=== PATIENT | male | born 1940 | race Caucasian/White ===

== ENCOUNTER 2016-10-27 09:37 | Emergency (ER) | payer MEDICARE, MEDICAID ==
[~2016-10-27] VITALS: Ht 177.8 cm; Wt 90.7 kg
[2016-10-27 11:00] LABS: BILIRUBIN,URINE NEGATIVE (NEGATIVE); KETONES,URINE NEGATIVE (NEGATIVE); LEUKOCYTE ESTERASE ,URINE NEGATIVE (NEGATIVE); NITRITE,URINE NEGATIVE (NEGATIVE); PH,URINE 6 (5-9); PROTEIN,URINE NEGATIVE (NEGATIVE); UROBILINOGEN,URINE NORMAL (NORMAL)
--- NOTE | 2016-10-27 11:02 | Diagnostic Imaging Report ---
INDICATION: Chest pain COMPARISON: None FINDINGS: Frontal and lateral views of the chest demonstrate mild cardiac enlargement without pulmonary edema. There is no pneumothorax, effusion or infiltrate. Chronic appearing elevation of the right hemidiaphragm is present. Pacemaker appears stable. IMPRESSION: No acute cardiopulmonary findings. Dictated by: Dictated on workstation # [id number]
[2016-10-27 11:22] LABS: BASOPHILS % (AUTO) 1 % (0-10); EOSINOPHILS % (AUTO) 1 % (0-10); LYMPHOCYTES # (AUTO) 0.9 X 10^3 (1.0-4.0); LYMPHOCYTES % (AUTO) 24 % (12-44); MEAN CORPUSCULAR HEMOGLOBIN 29 PG (25-34); MEAN CORPUSCULAR HGB CONC 34 G/DL (32-36); MEAN CORPUSCULAR VOLUME 87 FL (80-99); MEAN PLATELET VOLUME 11.9 FL (7.4-10.4); MONOCYTES # (AUTO) 0.9 X 10^3 (0.0-1.0); MONOCYTES % (AUTO) 25 % (0-12); NEUTROPHILS # (AUTO) 1.9 X 10^3 (1.8-7.8); NEUTROPHILS % (AUTO) 51 % (42-75); PLATELET COUNT 198 10^3/uL (130-400); RED BLOOD COUNT 4.73 10^6/uL (4.35-5.85); RED CELL DISTRIBUTION WIDTH 13.5 % (10.0-14.5); WHITE BLOOD COUNT 3.8 10^3/uL (4.3-11.0)
[2016-10-27 11:39] LABS: BAND NEUTROPHILS 3 %; BASOPHILS % (MANUAL) 2 %; LYMPHOCYTES % (MANUAL) 27 %; NEUTROPHILS % (MANUAL) 46 %
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
[2016-10-27 11:46] LABS: ANION GAP 13 MMOL/L (5-14); BLOOD UREA NITROGEN 15 MG/DL (7-18); BUN/CREATININE RATIO 11; CARBON DIOXIDE 24 MMOL/L (21-32); CHLORIDE 97 MMOL/L (98-107); CREATININE SERUM 1.35 MG/DL (0.60-1.30); GFR ESTIMATED 52; POTASSIUM 4.7 MMOL/L (3.6-5.0); SODIUM 134 MMOL/L (135-145)
[2016-10-27 11:47] LABS: ALANINE AMINOTRANSFERASE 22 U/L (0-55); ALBUMIN 4.3 GM/DL (3.2-4.5); ALCOHOL < 10 MG/DL (<10); ASPARTATE AMINO TRANSFERASE 20 U/L (5-34); BILIRUBIN,TOTAL 0.6 MG/DL (0.1-1.0); CALCIUM 10.2 MG/DL (8.5-10.1); MAGNESIUM 1.9 MG/DL (1.8-2.4); TOTAL PROTEIN 7.5 GM/DL (6.4-8.2)
[2016-10-27 11:49] LABS: GLUCOSE 447 MG/DL (70-105)
[2016-10-27 11:51] LABS: ACETAMINOPHEN < 10 UG/ML (10-30); SALICYLATE < 5.0 MG/DL (5.0-20.0)
[2016-10-27] MEDS ORDERED: inSUlin (REGULAR) HUMAN 1 UNIT/0.01 ML (CHARGE PER UNIT) SC STA (12:15)
[2016-10-27 19:21] VITALS: BP 130/99
== END 2016-10-27 19:34 | disposition short-term general hospital (02) ==
LOC: ER 09:42
DX: F91.8 Other conduct disorders (principal); F03.90 Unspecified dementia, unspecified severity, without behavioral disturbance, psychotic disturbance, mood disturbance, and anxiety; I25.10 Atherosclerotic heart disease of native coronary artery without angina pectoris; E78.00 Pure hypercholesterolemia, unspecified; I10 Essential (primary) hypertension; K21.9 Gastro-esophageal reflux disease without esophagitis; E11.9 Type 2 diabetes mellitus without complications; F41.9 Anxiety disorder, unspecified; Z87.891 Personal history of nicotine dependence
CPT/HCPCS: 36415; 71020; 80053; 80306; 80320; 80329; 81000; 82962; 83735; 84443; 85007; 85027; 93005; 96372

== ENCOUNTER 2017-04-28 16:50 | Emergency (ER) | payer MEDICAID, MEDICARE ==
[~2017-04-28] VITALS: Ht 177.8 cm; Wt 86.2 kg
[2017-04-28 18:14] LABS: BASOPHILS % (AUTO) 0 % (0-10); EOSINOPHILS % (AUTO) 0 % (0-10); HEMATOCRIT 38 % (40-54); HEMOGLOBIN 13.1 G/DL (13.3-17.7); LYMPHOCYTES # (AUTO) 1.2 X 10^3 (1.0-4.0); LYMPHOCYTES % (AUTO) 16 % (12-44); MEAN CORPUSCULAR HEMOGLOBIN 29 PG (25-34); MEAN CORPUSCULAR HGB CONC 34 G/DL (32-36); MEAN CORPUSCULAR VOLUME 85 FL (80-99); MEAN PLATELET VOLUME 11.4 FL (7.4-10.4); MONOCYTES # (AUTO) 2.4 X 10^3 (0.0-1.0); MONOCYTES % (AUTO) 33 % (0-12); NEUTROPHILS # (AUTO) 3.7 X 10^3 (1.8-7.8); NEUTROPHILS % (AUTO) 50 % (42-75); PLATELET COUNT 162 10^3/uL (130-400); RED BLOOD COUNT 4.52 10^6/uL (4.35-5.85); RED CELL DISTRIBUTION WIDTH 13.9 % (10.0-14.5); WHITE BLOOD COUNT 7.3 10^3/uL (4.3-11.0)
[2017-04-28 18:30] LABS: INR 1.1 (0.8-1.4); PROTHROMBIN TIME PATIENT 14.1 SEC (12.2-14.7)
[2017-04-28 18:32] LABS: ALANINE AMINOTRANSFERASE 10 U/L (0-55); ALBUMIN 4.1 GM/DL (3.2-4.5); ALKALINE PHOSPHATASE 66 U/L (40-136); BILIRUBIN,TOTAL 0.6 MG/DL (0.1-1.0); BUN/CREATININE RATIO 18; CALCIUM 10.1 MG/DL (8.5-10.1); CARBON DIOXIDE 25 MMOL/L (21-32); CHLORIDE 99 MMOL/L (98-107); CREATININE SERUM 1.09 MG/DL (0.60-1.30); GFR ESTIMATED > 60; GLUCOSE 210 MG/DL (70-105); MAGNESIUM 1.8 MG/DL (1.8-2.4); SODIUM 136 MMOL/L (135-145); TOTAL PROTEIN 6.9 GM/DL (6.4-8.2)
[2017-04-28 18:38] LABS: BAND NEUTROPHILS 6 %; BASOPHILS % (MANUAL) 0 %; EOSINOPHILS % (MANUAL) 1 %; LYMPHOCYTES % (MANUAL) 20 %; MONOCYTES % (MANUAL) 25 %; NEUTROPHILS % (MANUAL) 48 %
[2017-04-28 18:39] LABS: RBC MORPH NORMAL
[2017-04-28 18:51] LABS: BILIRUBIN,URINE NEGATIVE (NEGATIVE); CLARITY,URINE CLEAR; COLOR,URINE YELLOW; GLUCOSE, URINE (UA) NEGATIVE (NEGATIVE); KETONES,URINE 1+ (NEGATIVE); LEUKOCYTE ESTERASE ,URINE NEGATIVE (NEGATIVE); NITRITE,URINE NEGATIVE (NEGATIVE); PH,URINE 5 (5-9); PROTEIN,URINE NEGATIVE (NEGATIVE); UROBILINOGEN,URINE 1 MG/DL (NORMAL)
[2017-04-28 19:00] LABS: SQUAMOUS EPITHELIAL CELL,UR RARE /HPF
--- NOTE | 2017-04-28 19:10 | Diagnostic Imaging Report ---
PROCEDURE: CT head and CT cervical spine without contrast. TECHNIQUE: Multiple contiguous axial images were obtained through the brain and cervical spine without the use of intravenous contrast. Sagittal and coronal reformations through the cervical spine were then performed. INDICATION: Neck pain CT head: The ventricles are normal in size, shape and position. There are no masses or hemorrhages. There are no extra-axial fluid collections. IMPRESSION: Negative CT head CT cervical spine. There are degenerative changes of the atlantoaxial joint. There is mild diffuse degenerative disc change. Alignment is normal. There are no fractures. There is some facet arthropathy present in the cervical spine. IMPRESSION: Diffuse degenerative changes in the cervical spine. No acute abnormality seen. Dictated by: Dictated on workstation # [id number]
--- NOTE | 2017-04-28 19:12 | Diagnostic Imaging Report ---
INDICATION: Back pain CT thoracic and lumbar spine Thin axial sections through the thoracic and lumbar spine were obtained. Sagittal and coronal images were also reformatted and reviewed. Alignment is normal. There are no compression fractures seen. There are degenerative disc changes at L3-4, L4-5, and L5-S1 with vacuum disc phenomena. There is diffuse spondylosis with osteophyte formation at the thoracic and lumbar spine. IMPRESSION: Diffuse degenerative changes of the thoracic and lumbar spine. There is no compression fracture or other acute abnormality seen. Dictated by: Dictated on workstation # [id number]
--- NOTE | 2017-04-28 19:28 | Diagnostic Imaging Report ---
INDICATION: Back pain Pelvis AP view pelvis shows no fracture or dislocation. There are some degenerative changes in both hips with osteophytes forming at the right superior acetabular rim. IMPRESSION: No acute abnormality seen in the pelvis Dictated by: Dictated on workstation # [id number]
--- NOTE | 2017-04-28 19:29 | Diagnostic Imaging Report ---
INDICATION: Back pain There are postop changes from a median sternotomy. There is a dual-chamber pacemaker. Heart size and pulmonary vascularity are normal. Lungs are clear. There are no effusions or pneumothoraces. IMPRESSION: No acute abnormalities in the chest Dictated by: Dictated on workstation # [id number]
--- NOTE | 2017-04-28 19:36 | ED General ---
General Chief Complaint: Back Problems Stated Complaint: BACK PAIN Nursing Triage Note: Pt unable to give this RN a history Nursing Sepsis Screen: No Definite Risk Allergies and Home Medications Allergies Coded Allergies: No Known Drug Allergies (Unverified , 10/27/16) Past Yaipubt-Bfxaby-Hqvtqm Hx Patient Social History Alcohol Use: Past History Number of Drinks Today: AA Alcohol Beverage of Choice: Beer Recreational Drug Use: No Smoking Status: Former Smoker Type Used: Cigarettes 2nd Hand Smoke Exposure: No Recent Foreign Travel: No Contact w/Someone Who Travel: No Recent Infectious Disease Expo: No Recent Hopitalizations: Yes (pacemaker) Physical Abuse: No Sexual Abuse: No Mistreated: No Fear: No Immunizations Up To Date Tetanus Booster (TDap): Unknown Seasonal Allergies Seasonal Allergies: No Surgeries History of Surgeries: Yes Surgeries: Cardiac Respiratory History of Respiratory Disorde: No Cardiovascular History of Cardiac Disorders: Yes Cardiac Disorders: Coronary Artery Disease, High Cholesterol, Hypertension Neurological History of Neurological Disord: Yes Neurological Disorders: Dementia Genitourinary History of Genitourinary Disor: No Gastrointestinal History of Gastrointestinal Di: Yes Gastrointestinal Disorders: Gastroesophageal Reflux Musculoskeletal History of Musculoskeletal Dis: No Endocrine History of Endocrine Disorders: Yes Endocrine Disorders: Diabetes, Insulin dep HEENT History of HEENT Disorders: No Cancer History of Cancer: No Psychosocial History of Psychiatric Problem: Yes (etoh abuse) Behavioral Health Disorders: Anxiety Suicide Risk Score: 0 Integumentary History of Skin or Integumenta: No Family Medical History Significant Family History: No Pertinent Family Hx Physical Exam Vital Signs Vital Sign - Last 12Hours 04/28/17 16:54 Temp 97.0 Pulse 83 Resp 18 B/P (MAP) 118/74 (89) Pulse Ox 95 O2 Delivery Room Air Capillary Refill : Less Than 3 Seconds Progress/Results/Core Measures Suspected Sepsis Recent Fever Within 48 Hours: No Infection Criteria Present: None New/Unexplained Altered Menta: Yes Sepsis Screen: No Definite Risk Sepsis Diagnosis: SIRS Temperature:97.0 Pulse: 83 Respiratory Rate: 18 Laboratory Tests 04/28/17 18:05: White Blood Count 7.3 Blood Pressure 118 /74 Mean: 89 Laboratory Tests 04/28/17 18:05: Creatinine 1.09, INR Comment 1.1, Platelet Count 162, Total Bilirubin 0.6 Results/Orders Lab Results Laboratory Tests Test 04/28/17 17:59 04/28/17 18:05 04/28/17 18:40 Range/Units Glucometer 197 H 70-110 MG/DL White Blood Count 7.3 4.3-11.0 10^3/uL Red Blood Count 4.52 4.35-5.85 10^6/uL Hemoglobin 13.1 L 13.3-17.7 G/DL Hematocrit 38 L 40-54 % Mean Corpuscular Volume 85 80-99 FL Mean Corpuscular Hemoglobin 29 25-34 PG Mean Corpuscular Hemoglobin Concent 34 32-36 G/DL Red Cell Distribution Width 13.9 10.0-14.5 % Platelet Count 162 130-400 10^3/uL Mean Platelet Volume 11.4 H 7.4-10.4 FL Neutrophils (%) (Auto) 50 42-75 % Lymphocytes (%) (Auto) 16 12-44 % Monocytes (%) (Auto) 33 H 0-12 % Eosinophils (%) (Auto) 0 0-10 % Basophils (%) (Auto) 0 0-10 % Neutrophils # (Auto) 3.7 1.8-7.8 X 10^3 Lymphocytes # (Auto) 1.2 1.0-4.0 X 10^3 Monocytes # (Auto) 2.4 H 0.0-1.0 X 10^3 Eosinophils # (Auto) 0.0 0.0-0.3 10^3/uL Basophils # (Auto) 0.0 0.0-0.1 10^3/uL Neutrophils % (Manual) 48 % Lymphocytes % (Manual) 20 % Monocytes % (Manual) 25 % Eosinophils % (Manual) 1 % Basophils % (Manual) 0 % Band Neutrophils 6 % Blood Morphology Comment NORMAL Prothrombin Time 14.1 12.2-14.7 SEC INR Comment 1.1 0.8-1.4 Activated Partial Thromboplast Time 41 H 24-35 SEC Sodium Level 136 135-145 MMOL/L Potassium Level 5.0 3.6-5.0 MMOL/L Chloride Level 99 98-107 MMOL/L Carbon Dioxide Level 25 21-32 MMOL/L Anion Gap 12 5-14 MMOL/L Blood Urea Nitrogen 20 H 7-18 MG/DL Creatinine 1.09 0.60-1.30 MG/DL Estimat Glomerular Filtration Rate > 60 BUN/Creatinine Ratio 18 Glucose Level 210 H 70-105 MG/DL Calcium Level 10.1 8.5-10.1 MG/DL Magnesium Level 1.8 1.8-2.4 MG/DL Total Bilirubin 0.6 0.1-1.0 MG/DL Aspartate Amino Transf (AST/SGOT) 14 5-34 U/L Alanine Aminotransferase (ALT/SGPT) 10 0-55 U/L Alkaline Phosphatase 66 40-136 U/L Troponin I < 0.30 <0.30 NG/ML Total Protein 6.9 6.4-8.2 GM/DL Albumin 4.1 3.2-4.5 GM/DL TSH Evangeline Testing 2.10 0.35-4.94 UIU/ML Urine Color YELLOW Urine Clarity CLEAR Urine pH 5 5-9 Urine Specific [place] 1.020 1.016-1.022 Urine Protein NEGATIVE NEGATIVE Urine Glucose (UA) NEGATIVE NEGATIVE Urine Ketones 1+ H NEGATIVE Urine Nitrite NEGATIVE NEGATIVE Urine Bilirubin NEGATIVE NEGATIVE Urine Urobilinogen 1 NORMAL MG/DL Urine Leukocyte Esterase NEGATIVE NEGATIVE Urine RBC (Auto) NEGATIVE NEGATIVE Urine RBC NONE /HPF Urine WBC NONE /HPF Urine Squamous Epithelial Cells RARE /HPF Urine Crystals NONE /LPF Urine Bacteria NONE /HPF Urine Casts NONE /LPF Urine Mucus NEGATIVE /LPF Urine Culture Indicated NO My Orders Orders - CHRIS WYATT DO Accucheck Stat ONCE (04/28/17 17:56) Saline Lock/Iv-Start (04/28/17 17:56) Ekg Tracing (04/28/17 17:56) Monitor-Rhythm Ecg Trace Only (04/28/17 17:56) Ct Head/Cervical Spine Wo (04/28/17 17:56) Ct Thoracic/Lumbar Spine Wo (04/28/17 17:56) Cbc With Automated Diff (04/28/17 17:56) Comprehensive Metabolic Panel (04/28/17 17:56) Magnesium (04/28/17 17:56) Protime With Inr (04/28/17 17:56) Partial Thromboplastin Time (04/28/17 17:56) Thyroid Analyzer (04/28/17 17:56) Troponin I (04/28/17 17:56) Ua Culture If Indicated (04/28/17 17:56) Chest 1 View, Ap/Pa Only (04/28/17 17:56) Pelvis (04/28/17 17:56) Saline Lock/Iv-Start (04/28/17 17:56) Influenza A And B Antigens (04/28/17 18:16) Manual Differential (04/28/17 18:05) Vital Signs/I&O Vital Sign - Last 12Hours 04/28/17 16:54 Temp 97.0 Pulse 83 Resp 18 B/P (MAP) 118/74 (89) Pulse Ox 95 O2 Delivery Room Air Capillary Refill : Less Than 3 Seconds Blood Pressure Mean: 89 Departure Impression Impression: Primary Impression: DEMENTIA Disposition: 03 XFER SNF Condition: Stable Departure-Patient Inst. Referrals: GISELL RATLIFF DO (PCP/Family) Primary Care Physician Patient Instructions: Dementia (DC) Add. Discharge Instructions: CONTINUE YOUR CURRENT MEDICATIONS FOLLOW UP WITH DR. RATLIFF FOR FURTHER CARE All discharge instructions reviewed with patient and/or family. Voiced understanding. CHRIS WYATT DO Apr 28, 2017 19:36
[2017-04-28 20:15] VITALS: BP 120/68
== END 2017-04-28 20:15 ==
LOC: EDUNIT# 16:50 → ER 16:51
DX: F03.90 Unspecified dementia, unspecified severity, without behavioral disturbance, psychotic disturbance, mood disturbance, and anxiety (principal); I25.10 Atherosclerotic heart disease of native coronary artery without angina pectoris; E78.00 Pure hypercholesterolemia, unspecified; I10 Essential (primary) hypertension; E11.9 Type 2 diabetes mellitus without complications; F41.9 Anxiety disorder, unspecified; K21.9 Gastro-esophageal reflux disease without esophagitis; Z87.891 Personal history of nicotine dependence; Z95.0 Presence of cardiac pacemaker
CPT/HCPCS: 36415; 70450; 71045; 72125; 72128; 72131; 72170; 80053; 81000; 82962; 83735; 84443; 84484; 85007; 85027; 85610; 85730; 87804; 93005

== ENCOUNTER → 2017-05-22 | Outpatient (CLI) | payer MEDICARE ==
[~2017-05-22] MED LIST: ACET325T38 PO; ASPI-983 PO; CARV3.122 PO; CEFD300C3 PO; CHOL10007 PO; CLOP75TA28 PO; CODE118S2 PO; DOCU-143 PO; DONE10TA41 PO; GLUC1KIT IJ; HYDR-700 PO; INSN1U SC; INSN1U SQ; INSU100I14 SQ; LISI-556 PO; MAGN400O7 PO; MEMA10TA22 PO; METF1000 PO; OSEL75CA15 PO; PANT40TA3 PO; RISP1TAB3 PO; SIMV40TA4 PO; TRAM50TA2 PO; TRAZ-28 PO
--- NOTE | 2017-05-22 15:34 | Diagnostic Imaging Report ---
PROCEDURE: CT head without contrast. TECHNIQUE: Multiple contiguous axial images were obtained through the brain without the use of intravenous contrast. INDICATION: Fall with head injury. COMPARISON: Head CT from 04/28/2017. FINDINGS: The ventricles and sulci are appropriate for the patient's age. Moderate periventricular hypodensity is noted, consistent with senescent change. No sulcal effacement is identified. There is no midline shift. No acute intra-axial or extra-axial hemorrhage is detected. The cisterns are patent. The visualized paranasal sinuses are clear. IMPRESSION: No acute intracranial process is detected. Dictated by: Dictated on workstation # [id number]
== END ==
LOC: RAD 15:13
PROVIDERS: ATTEND Family Medicine
DX: S09.90XA Unspecified injury of head, initial encounter (principal); R41.0 Disorientation, unspecified; W19.XXXA Unspecified fall, initial encounter
CPT/HCPCS: 70450

== ENCOUNTER → 2017-08-19 | Outpatient (CLI) | payer MEDICARE ==
[~2017-08-19] VITALS: Ht 175.3 cm; Wt 89.8 kg
[~2017-08-19] MED LIST changes: +CATHETER FLUSH 10 ML SYR IV PRN; -METF1000 PO; +METF10002 PO; +ONDA8TAB13 PO; +REGADENOSON 0.4 MG/5 ML SYR (LEXISCAN) IV ONE
[2017-08-19 09:21] VITALS: BP 143/89
--- NOTE | 2017-08-19 14:29 | STRESS TEST ---
DATE OF SERVICE: 08/19/2017 LEXISCAN MYOVIEW STRESS TEST REPORT REFERRING PHYSICIAN: Dr. Guevara. Baseline heart rate is 98. Baseline blood pressure 149/88. Baseline EKG is atrial fibrillation with occasional PVCs. In summary, the patient was injected with 10.61 mCi of technetium-99 Myoview and the resting images were obtained. Then, the patient received 0.4 mg of Lexiscan followed by 29.7 mCi of technetium-99 Myoview. Throughout the test, there were no EKG changes. The resting and stress images were reviewed and compared in the short axis, horizontal long axis, and vertical long axis views. Review of the images showed decreased uptake involving the whole inferior wall, inferolateral wall and anterolateral wall with mild reversibility. SSS is 27. SDS is 6. TID value 1.01. On the gated images, the left ventricle appeared to be in normal size with dyskinesia of the inferior wall, hypokinesia at the inferoapical segment and inferoseptum and inferolateral wall. Calculated ejection fraction 36%. Underlying rhythm is atrial fibrillation. CONCLUSION: 1. The patient tolerated Lexiscan well. 2. 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 3. Normal left ventricular size with dyskinesia of the inferior wall hypokinesia at the inferoapical and inferolateral wall with calculated ejection fraction 36%, the underlying atrial fibrillation could affect the calculated ejection fraction. Job ID: [id number] DocumentID: [id number] Dictated Date: 08/19/2017 12:06:17 Sanitation Superintendent Date: 08/19/2017 14:29:14 Dictated By: MORENA GUZMAN MD
== END ==
LOC: CARD 07:56
PROVIDERS: ATTEND Internal Medicine Cardiovascular Disease
DX: I44.30 Unspecified atrioventricular block (principal); R94.31 Abnormal electrocardiogram [ECG] [EKG]; I25.10 Atherosclerotic heart disease of native coronary artery without angina pectoris; E11.9 Type 2 diabetes mellitus without complications; I10 Essential (primary) hypertension; E78.2 Mixed hyperlipidemia; F03.90 Unspecified dementia, unspecified severity, without behavioral disturbance, psychotic disturbance, mood disturbance, and anxiety
CPT/HCPCS: 78452; 93017

== ENCOUNTER 2017-08-28 08:17 | Day surgery (SDC) | payer MEDICARE ==
[~2017-08-28] VITALS: Ht 175.3 cm; Wt 89.8 kg
[2017-08-28] VITALS (11 sets, daily range): BP systolic 110–154; BP diastolic 60–98
[~2017-08-28 08:17] MED LIST changes: -CATHETER FLUSH 10 ML SYR IV PRN; -ONDA8TAB13 PO; -REGADENOSON 0.4 MG/5 ML SYR (LEXISCAN) IV ONE
[2017-08-28] MEDS ORDERED: HEParin (CATH LAB) 2,000 ML IV ONE (08:23)
[2017-08-28] MEDS ORDERED: LIDOCAINE 1% INJ 20 ML 20 ML VIAL ONE (08:23)
[2017-08-28] MEDS ORDERED: NS IV 1000 ML 1,000 ML ONE (08:23)
[2017-08-28] MEDS ORDERED: NS IV 1000 ML 1,000 ML IV SCH ×2 (08:39→11:04)
[2017-08-28 08:55] LABS: HEMOGLOBIN 12.7 G/DL (13.3-17.7); MEAN PLATELET VOLUME 11.7 FL (7.4-10.4); RED BLOOD COUNT 4.49 10^6/uL (4.35-5.85); RED CELL DISTRIBUTION WIDTH 14.9 % (10.0-14.5); WHITE BLOOD COUNT 4.8 10^3/uL (4.3-11.0)
[2017-08-28 09:07] LABS: INR 1.1 (0.8-1.4); PROTHROMBIN TIME PATIENT 14.5 SEC (12.2-14.7)
--- NOTE | 2017-08-28 09:13 | Diagnostic Imaging Report ---
Indication: Coronary artery disease. Frontal chest obtained at 8:50 hours a.m. and compared to 05/03/2017. Heart is normal in size. There is elevation of the right hemidiaphragm. There is no focal infiltrate or pneumothorax or pleural fluid. Pacemaker device is unchanged compared to the prior study. Impression: Unchanged poststernotomy findings with pacemaker device in place. Unchanged elevation of the right hemidiaphragm. No acute infiltrate or edema or pleural fluid. Dictated by: Dictated on workstation # [id number]
[2017-08-28 09:14] LABS: ALANINE AMINOTRANSFERASE 16 U/L (0-55); ALBUMIN 4.3 GM/DL (3.2-4.5); ALKALINE PHOSPHATASE 62 U/L (40-136); BILIRUBIN,TOTAL 0.5 MG/DL (0.1-1.0); BUN/CREATININE RATIO 12; CALCIUM 10.3 MG/DL (8.5-10.1); CARBON DIOXIDE 26 MMOL/L (21-32); CHLORIDE 101 MMOL/L (98-107); CHOLESTEROL 138 MG/DL (< 200); CREATININE SERUM 1.14 MG/DL (0.60-1.30); GFR ESTIMATED > 60; GLUCOSE 235 MG/DL (70-105); HDL CHOLESTEROL 41 MG/DL (40-60); POTASSIUM 4.8 MMOL/L (3.6-5.0); SODIUM 136 MMOL/L (135-145); TOTAL PROTEIN 7.6 GM/DL (6.4-8.2); TRIGLYCERIDES 106 MG/DL (<150); VLDL CHOLESTEROL 21 MG/DL (5-40)
[2017-08-28] MEDS ORDERED: TRAM50TA2 PO (09:25)
[2017-08-28] MEDS ORDERED: INSN1U SQ (09:39)
[2017-08-28] MEDS ORDERED: ONDA8TAB13 PO (09:40)
[2017-08-28] MEDS ORDERED: MIDAZOLAM 5 MG/5 ML (VERSED) VIAL ONE (10:13)
[2017-08-28] MEDS ORDERED: fentaNYL INJECTION 100 MCG/2 ML AMP ONE (10:13)
--- NOTE | 2017-08-28 10:15 | Cardiac Procedure Note-CS/ASA ---
Pre-Procedure Note Pre-Op Procedure Note H&P Reviewed The H&P was reviewed, patient examined and no changes noted. Date H&P Reviewed: August 28, 2017 Time H&P Reviewed: 10:14 Conscious Sedation Pre-Proced Time Reviewed: 10:14 ASA Class: 3 Airway Mallampati Classification: ([place] appropriate class) I. II. III, IV Lungs Heart ASA score ASA 1: a normal healthy patient ASA 2: a patient with a mild systemic disease (mid diabetes, controlled hypertension, obesity x ASA 3: a patient with a severe systemic disease that limits activity (angina , COPD, prior Myocardial infarction) ASA 4: a patient with an incapacitating disease that is a constant threat to life (CHF, renal failure) ASA 5: a moribund patient not expected to survive 24 hrs. (ruptured aneurysm) ASA 6: a declared brain patient whose organs are being harvested. For emergent operations, add the letter E after the classification Grade 3 Sedation Plan: Analgesia, Amnesia, Plan communicated to team members, Discussed options with patient/fam, Discussed risks with patient/fam Note The patient is an appropriate candidate to undergo the planned procedure, sedation, and anesthesia. The patient immediately re-assessed prior to indication. MORENA GUZMAN MD August 28, 2017 10:14
--- NOTE | 2017-08-28 11:06 | Discharge Inst-Post CATH ---
Discharge Inst-CATH Post Cardiac Cath D/C Inst Follow Up/Plan Hold metformin for [address] Ya's office in 3 months CARDIAC CATH DISCHARGE INSTRUCTIONS *Hold Metformin for 48 hours post heart cath. ACTIVITY * Go Home directly and rest. * Limit activity of the leg (or wrist if it was used) for 7 days including aerobics, swimming, jogging, bicycling, etc. * Restrict stair-climbing for 7 days if possible, if not, climb up with your non -cath leg, then bring together on the same step. * Avoid lifting, pushing, pulling or excessive movement of the affected extremity for 7 days. * Customary sexual activity may be resumed after 2 days-use caution not to use a position that strains or causes pain to the affected extremity. * No driving for 24 hours. * NO SMOKING. * Avoid straining for bowel movements for 7 days. * Gentle walking on level ground is allowed. * Returning to work will depend on the type of procedure and the results. Your doctor will discuss this with you. CALL YOUR DOCTOR FOR ANY OF THE FOLLOWING: *If bleeding from the puncture site occurs- Apply gentle pressure to site with clean cloth and call your doctor or EMS. * If a knot or lump forms under the skin, increases in size, or causes pain. * If bruising appears to be worsening or moving further down your leg instead of disappearing. * Temperature above 101 F. CARE OF YOUR GROIN INCISION; * Bruising or purple discoloration of the skin near the puncture site is common. * You may shower only, no bathtub bathing for 5 days. Be careful to avoid slipping as your leg may feel stiff. * If a closure device was used on your femoral artery, please see the attached guide regarding care of the device and your leg. * REMOVE the dressing from your groin the next day after your procedure in the shower. CARE OF YOUR WRIST INCISION; * Bruising or purple discoloration of the skin near the puncture site is common. * You may shower. * DO NOT submerge wrist. * Remove dressing in 24 hours. MORENA YA MD August 28, 2017 11:06
--- NOTE | 2017-08-28 11:12 | Cardiac Cath Report ---
Cardiac Cath Report Physician (s)/Production Line Solderer (s) Physician MORENA GUZMAN MD Pre-Procedure Diagnosis Pre-Procedure Diagnosis: coronary artery disease Post-Procedure Note Procedure Start Date: August 28, 2017 Name of Procedure: left heart catheterization, left ventriculogram, thoracic aortogram Findings/Procedure Note PROCEDURE NOTE: After explaining the procedure to the patient, all pros and cons were explained , all questions were answered. The patient signed the consent and then he was placed on the cardiac catheterization laboratory. Groin was prepped SL fashion local anesthesia was used. Sheath placed in the right femoral artery. Ekaterina right and left catheter were used to access the coronary system.Vein Graft evaluated. REESE evaluated. Pigtail was used to access the left ventricular cavity. Left ventriculogram was done Aortic arch angiogram/thoracic aortogram was done At the end of the procedure the sheath was removed. Closure device was used FINDINGS: Hemodynamics LV 100/8, end-diastolic pressure of 8 Aorta 90 80 59 mean of 76 ANATOMY: Left Main is free of obstructive disease Left Anterior Descending is totally occluded with patent REESE to LAD and vein graft to diagonal branch Left Circumflex is occluded, the vein graft was not seen, probably occluded, there are collateral filling the circumflex artery from the LAD system Right Coronory Artery is totally occluded, vein graft was not seen, probably occluded, the right coronary artery is getting filled by collateral from the LAD system REESE to LAD is patent with good flow distally Vein Graft to diagonal artery is patent with good flow in the diagonal artery filling the circumflex artery No other vein grafts were noted, there are collateral filling the circumflex artery and the right coronary artery LV Gram is dilated with inferior wall hypokinesia to akinesia, ejection fraction 30 percent Aorta evaluation done with thoracic aortogram, atherosclerotic plaques were noted in the thoracic aorta, no dissection or aneurysm, the vein graft to diagonal artery was seen, no other vein grafts were noted, carotid artery are calcified CONCLUSION: 1. Patent REESE to LAD and vein graft to diagonal artery 2. Occluded circumflex artery getting filled by collaterals from the LAD system , no vein graft to the circumflex was seen 3. Occluded right coronary artery getting filled by collaterals from the left system, no vein graft to the right coronary artery was seen 4. Dilated left ventricular with inferior wall akinesia, ejection fraction 30 percent 5. Hypertensive changes in the thoracic aorta, no dissection or aneurysm DISCUSSION AND RECOMMENDATION: medical therapy is recommended, no intervention Anesthesia Type: Conscious Sedation Estimated blood loss (mL): 15 ml Contrast Amount: 80 ml Total Radiation Dose: 532 mGy Post-Procedure Diagnosis Post-operative diagnosis: Coronary artery disease Congestive heart failure, chronic compensated left ventricular systolic dysfunction, ischemic cardiomyopathy Hypertension Hyperlipidemia Diabetes mellitus MORENA GUZMAN MD August 28, 2017 11:12
[2017-08-28] MEDS ORDERED: PATIENT MAY USE OWN MEDS, ALL PO SCH (11:15)
== END 2017-08-28 15:30 ==
LOC: CATH 08:17 → SURG 11:15 → CATH 15:30
PROVIDERS: ATTEND Internal Medicine Cardiovascular Disease
DX: I25.10 Atherosclerotic heart disease of native coronary artery without angina pectoris (principal); I50.22 Chronic systolic (congestive) heart failure; I25.5 Ischemic cardiomyopathy; I12.9 Hypertensive chronic kidney disease with stage 1 through stage 4 chronic kidney disease, or unspecified chronic kidney disease; E78.5 Hyperlipidemia, unspecified; E11.9 Type 2 diabetes mellitus without complications; F03.90 Unspecified dementia, unspecified severity, without behavioral disturbance, psychotic disturbance, mood disturbance, and anxiety; F10.21 Alcohol dependence, in remission; R09.89 Other specified symptoms and signs involving the circulatory and respiratory systems; N18.9 Chronic kidney disease, unspecified; R60.0 Localized edema; Z95.1 Presence of aortocoronary bypass graft; Z95.0 Presence of cardiac pacemaker; Z79.899 Other long term (current) drug therapy; Z79.84 Long term (current) use of oral hypoglycemic drugs; Z87.891 Personal history of nicotine dependence
CPT/HCPCS: 36415; 71045; 80053; 80061; 85027; 85610; 87081; 93459

== ENCOUNTER → 2017-09-30 | Outpatient (CLI) | payer MEDICARE ==
[~2017-09-30] MED LIST changes: -CODE118S2 PO; +CODE118S4 PO; +ONDA8TAB13 PO; +TRAZ-189 PO; -TRAZ-28 PO
== END ==
LOC: CARD 13:48
PROVIDERS: ATTEND Internal Medicine Cardiovascular Disease
DX: I44.30 Unspecified atrioventricular block (principal); R94.31 Abnormal electrocardiogram [ECG] [EKG]; I25.10 Atherosclerotic heart disease of native coronary artery without angina pectoris; E11.9 Type 2 diabetes mellitus without complications; I10 Essential (primary) hypertension; E78.2 Mixed hyperlipidemia; F03.90 Unspecified dementia, unspecified severity, without behavioral disturbance, psychotic disturbance, mood disturbance, and anxiety; I08.0 Rheumatic disorders of both mitral and aortic valves
CPT/HCPCS: 93306

== ENCOUNTER 2018-04-29 18:44 | Emergency (ER) | payer MEDICARE ==
[~2018-04-29] VITALS: Ht 182.9 cm; Wt 90.7 kg
[~2018-04-29 18:44] MED LIST changes: +METF-399 PO; -METF10002 PO
--- OUTSIDE RECORDS SUMMARY | 2018-04-29 18:48 | XMS REPORT | CCD ---
Author Author SANGEETA GREY Organization Unknown Address [address] [place] [address] Care Team Providers Care Intranet Support Name Role Phone ALLENCULLINS PHYS, LAURENT ER Attphys ALLENCULLINS PHYS, LAURENT ER Prisurg Allergies Unknown or Not Available. Active Medications Unknown or Not Available. Problems Unknown or Not Available. Procedures Procedure Code Procedure Type Date CX CHEST [id number] 08/12/2016 BEDSIDE GLUCOSE [id number] [facility] CT 08/13/2016 COMPREHENSIVE METABOLIC PANEL 643810564 OMED CT 2016 CBC W/ AUTO DIFF (RFLX MAN DIFF IF IND) [id number] SNOMED CT 08/12/[address] 08/12/2016 TROPONIN-I ADV [id number] SNOMED CT 08/12/2016 ^CBC W/ MANUAL DIFF [id number] SNOMED CT 08/12/2016 Results BEDSIDE GLUCOSE - Collect Date/Time: 08/13/2016 00:08 Test Name Code Test Result Test Units Test Ref Range GLUCOSE POCT 324 MG/DL L=70 H=100 COMPREHENSIVE METABOLIC PANEL - Collect Date/Time: 08/12/2016 22:45 Test Name Code Test Result Test Units Test Ref Range GLUCOSE 2345-7 503 MG/DL L=70 H=100 SODIUM 2951-2 131 MEQ/L L=135 H=148 POTASSIUM 2823-3 4.6 MEQ/L L=3.5 H=5.3 CHLORIDE 2075-0 101 MEQ/L L=96 H=110 CO2 2028-9 19 MEQ/L L=22 H=29 BUN 3094-0 15 MG/DL L=8 H=22 CREATININE 2160-0 1.3 MG/DL L=0.6 H=1.6 SGOT/AST 1920-8 13 IU/L L=10 H=40 SGPT/ALT 1742-6 11 IU/L L=8 H=54 ALK PHOS 6768-6 89 IU/L L=35 H=115 TOTAL PROTEIN 2885-2 6.6 G/DL L=5.5 H=8.5 ALBUMIN 1751-7 3.8 G/DL L=3.1 H=5.4 TOTAL BILI 1975-2 0.2 MG/DL L=0.0 H=1.5 CALCIUM 94842-9 9.1 MG/DL L=8.2 H=10.6 AGE 75 yrs GFR NonAA 54 GFR AA 65 eGFR 54 mL/min/1.7 eGFR AA* >60 N/A CBC W/ AUTO DIFF (RFLX MAN DIFF IF IND) - Collect Date/Time: 08/12/2016 22:45 Test Name Code Test Result Test Units Test Ref Range WBC 65247-9 5.8 TH/CMM L=4.5 H=10.8 RBC 789-8 4.02 ML/CMM L=4.70 H=6.10 HGB 718-7 11.9 G/DL L=14.0 H=18.0 HCT 4544-3 34.8 % L=42.0 H=52.0 MCV 87 FL L=81 H=99 MCH 29.6 PG L=27.0 H=33.0 MCHC 34.2 G/DL L=31.0 H=36.0 RDW SD 45 FL L=36 H=50 RDW CV 14.2 % L=0.0 H=14.8 MPV 11.5 FL L=9.3 H=12.5 PLT 777-3 183 TH/CMM L=130 H=440 NRBC# 0.00 TH/CMM L=0.00 H=0.00 NRBC% 0.0 /100WBC L=0.0 H=2.0 %NEUT 45.9 % %LYMP 30.4 % %MONO 21.9 % %EOS 0.2 % %BASO 0.2 % #NEUT 2.65 TH/CMM L=2.10 H=8.20 #LYMP 1.75 TH/CMM L=0.90 H=5.20 #MONO 1.26 TH/CMM L=0.16 H=1.00 #EOS 0.01 TH/CMM L=0.00 H=0.80 #BASO 0.01 TH/CMM L=0.00 H=0.20 SEGS 42 % BANDS 10 % LYMPHS 33 % MONOS 15 % MANUAL DIFF SEE BELOW N/A BNP - Collect Date/Time: 08/12/2016 22:45 Test Name Code Test Result Test Units Test Ref Range BNP 00192-9 148 PG/ML L=0 H=100 TROPONIN-I ADV - Collect Date/Time: 08/12/2016 22:45 Test Name Code Test Result Test Units [place] [address]-3 0.04 ng/mL L=0.04 H=0.40 Function Status Unknown or Not Available. History of Immunizations Unknown or Not Available. Plan of Treatment Unknown or Not Available. Social History Smoking Status Code Start Date End Date Unknown if ever smoked [id number] Vital Signs Unknown or Not Available. Function Status Unknown or Not Available. Goals Unknown or Not Available. ASSESSMENTS Unknown or Not Available. Health Concerns Section Unknown or Not Available.
--- OUTSIDE RECORDS SUMMARY | 2018-04-29 18:49 | XMS REPORT ---
Author Author KARIN Robles [facility] Address [address] [place] [address] Care Team Providers Care Clinical Nurse Name Role Phone KARIN Robles Unavailable PROBLEMS Type Condition ICD9-CM Code [id number] Code Onset Dates Condition Status SNOMED Code Problem Essential hypertension I10 Active 81923165 Problem Memory loss R41.3 Active 01865686 Problem Hyperlipidemia, unspecified hyperlipidemia type E78.5 Active 69754598 Problem Type 2 diabetes mellitus without complications E11.9 Active 405386513 ALLERGIES No Known Allergies ENCOUNTERS Encounter Location Date Diagnosis [facility] [address] [place] [id number] [place] [phone] Aug, [facility] [address] [place] [id number] [place] [phone] Aug, Rash and nonspecific skin eruption R21 and Low back pain M54.5 [facility] [id number] [place] [id number] Aug, [facility] [address] [place], [place] [id number] [place] [address] Aug, Type 2 diabetes mellitus without complications E11.9 ; Memory loss R41.3 ; Low back pain M54.5 ; Hyperlipidemia, unspecified hyperlipidemia type E78.5 and Essential hypertension I10 [facility] [address] [place] [id number] [place] [address] Aug, Arthralgia, unspecified joint M25.50 [facility] [address] [place] [id number] [place] [phone] 09 Aug, 2016 Type 2 diabetes mellitus without complications E11.9 and Arthralgia, unspecified joint M25.50 [facility] [address] [facility] [id number] [place] [address] Dec, IMMUNIZATIONS No Known Immunizations SOCIAL HISTORY Never Assessed REASON FOR VISIT Est care/ lower back pain constant. VwylieMA, A1c, DM template PLAN OF CARE Activity Details Follow Up 4 Weeks Reason: VITAL SIGNS Height 70 in 2016-09-19 Weight 225.6 lbs 2016-09-19 Temperature 96.5 degrees Fahrenheit 2016-09-19 Heart Rate 88 bpm 2016-09-19 Respiratory Rate 18 2016-09-19 BMI 32.37 kg/m2 2016-09-19 Blood pressure systolic 130 mmHg 2016-09-19 Blood pressure diastolic 86 mmHg 2016-09-19 MEDICATIONS Medication Instructions Dosage Frequency Start Date End Date Duration Status Metformin HCl 1000 MG Orally Twice a day 1 tablet with meals 12h Active Carvedilol 3.125 MG Active Clopidogrel Bisulfate 75 MG Orally Once a day 1 tablet 24h Active Diclofenac Sodium & Capsaicin 1.5 & 0.025 % as directed Aug, Active Lisinopril 5 MG Orally Once a day 1 tablet 24h Active Atorvastatin Calcium 40 MG Orally Once a day 1 tablet 24h Active Humalog Pen 70/30 40 uints 12h Active Aspir-81 81 MG Orally Once a day 1 tablet 24h Active Nitrostat 0.4 MG Active RESULTS No Results PROCEDURES Procedure Date Ordered Result Body Site GLYCATED HEMOGLOBIN TEST September 19, [address] [facility] September 19, 2016 [facility] VISIT ESTABLISHED PATIENT September 19, 2016 AS[facility]* September 19, 2016 INSTRUCTIONS MEDICATIONS ADMINISTERED No Known Medications MEDICAL (GENERAL) HISTORY Type Description Date Medical History Type 2 diabetes mellitus without complications Surgical History Back Surgery
--- OUTSIDE RECORDS SUMMARY | 2018-04-29 18:49 | XMS REPORT ---
Author Author KARIN Robles [facility] Address [address] [place] [address] Care Team Providers Care Teacher Learning Disabled Name Role Phone KARIN Robles Unavailable PROBLEMS Type Condition ICD9-CM Code [id number] Code Onset Dates Condition Status SNOMED Code Problem Essential hypertension I10 Active 73723521 Problem Memory loss R41.3 Active 73263134 Problem Hyperlipidemia, unspecified hyperlipidemia type E78.5 Active 72314678 Problem Type 2 diabetes mellitus without complications E11.9 Active 587598234 ALLERGIES No Known Allergies ENCOUNTERS Encounter Location Date Diagnosis [facility] [address] [place] [id number] [place] [phone] Aug, [facility] [address] [place] [id number] [place] [phone] Aug, Rash and nonspecific skin eruption R21 and Low back pain M54.5 [facility] [id number] [place] [id number] Aug, [facility] [address] [place], [place] [id number] [place] [address] Aug, Type 2 diabetes mellitus without complications E11.9 ; Memory loss R41.3 ; Low back pain M54.5 ; Hyperlipidemia, unspecified hyperlipidemia type E78.5 and Essential hypertension I10 [facility] [address] [place] [id number] [place] [address] Aug, Arthralgia, unspecified joint M25.50 [facility] [address] [place] [id number] [place] [phone] 09 Aug, 2016 Type 2 diabetes mellitus without complications E11.9 and Arthralgia, unspecified joint M25.50 [facility] [address] [facility] [id number] [place] [address] Dec, IMMUNIZATIONS No Known Immunizations SOCIAL HISTORY Never Assessed REASON FOR VISIT Lower back right above hips pain X 2 weeks- RSpencerMA PLAN OF CARE Activity Details Follow Up prn Reason: VITAL SIGNS Weight 223.2 lbs 2016-09-07 Temperature 96.5 degrees Fahrenheit 2016-09-07 Heart Rate 122 bpm 2016-09-07 Respiratory Rate 18 2016-09-07 Blood pressure systolic 124 mmHg 2016-09-07 Blood pressure diastolic 86 mmHg 2016-09-07 MEDICATIONS Medication Instructions Dosage Frequency Start Date End Date Duration Status Atorvastatin Calcium 40 MG Orally Once a day 1 tablet 24h Active Lisinopril 5 MG Orally Once a day 1 tablet 24h Active Humalog Pen 70/30 40 uints 12h Active Clopidogrel Bisulfate 75 MG Orally Once a day 1 tablet 24h Active Carvedilol 3.125 MG Active Metformin HCl 1000 MG Orally Twice a day 1 tablet with meals 12h Active RESULTS Name Result Date Reference Range GLUCOSE FINGERSTICK (IN HOUSE) GLU FINGERSTICK 405 PC Lot # [id number] Exp date 03/11/2017 PROCEDURES Procedure Date Ordered Result Body Site GLUCOSE BLOOD TEST September 07, 2016 [facility] VISIT ESTABLISHED PATIENT September 07, 2016 INSTRUCTIONS MEDICATIONS ADMINISTERED No Known Medications MEDICAL (GENERAL) HISTORY Type Description Date Medical History Type 2 diabetes mellitus without complications Surgical History Back Surgery
--- OUTSIDE RECORDS SUMMARY | 2018-04-29 18:49 | XMS REPORT ---
Author Author ARNOL MONTANEZ Organization [facility] [place] Address [address] [place] [address] Care Team Providers Care Pastry Cook Helper Name Role Phone TARIK, ARNOL Unavailable PROBLEMS Type Condition ICD9-CM Code [id number] Code Onset Dates Condition Status SNOMED Code Problem Essential hypertension I10 Active 90656675 Problem Memory loss R41.3 Active 25595570 Problem Hyperlipidemia, unspecified hyperlipidemia type E78.5 Active 86888627 Problem Type 2 diabetes mellitus without complications E11.9 Active 429557163 ALLERGIES No Known Allergies ENCOUNTERS Encounter Location Date Diagnosis [facility] [address] [place], [place] [id number] [place] [phone] Aug, [facility] [address] [place] [id number] [place] [address] Aug, Rash and nonspecific skin eruption R21 and Low back pain M54.5 [facility] [address] [place] [id number] [place] [phone] Aug, [facility] [address] [place] [id number] [address] Aug, Type 2 diabetes mellitus without complications E11.9 ; Memory loss R41.3 ; Low back pain M54.5 ; Hyperlipidemia, unspecified hyperlipidemia type E78.5 and Essential hypertension I10 [facility] [address] [place] [id number] [address] Aug, Arthralgia, unspecified joint M25.50 [facility] [address] [place], [place] [id number] [place] [address] 09 Aug, 2016 Type 2 diabetes mellitus without complications E11.9 and Arthralgia, unspecified joint M25.50 [facility] [place] [address] [place] [id number] [address] Dec, IMMUNIZATIONS No Known Immunizations SOCIAL HISTORY Never Assessed REASON FOR VISIT Back pain and hives AJAY Mariee PLAN OF CARE Activity Details Follow Up prn Reason: VITAL SIGNS Height 70 in 2016-09-26 Weight 227 lbs 2016-09-26 Temperature 98.6 degrees Fahrenheit 2016-09-26 Heart Rate 82 bpm 2016-09-26 Respiratory Rate 18 2016-09-26 BMI 32.57 kg/m2 2016-09-26 Blood pressure systolic 122 mmHg 2016-09-26 Blood pressure diastolic 78 mmHg 2016-09-26 MEDICATIONS Medication Instructions Dosage Frequency Start Date End Date Duration Status Carvedilol 3.125 MG Active Atorvastatin Calcium 40 MG Orally Once a day 1 tablet 24h Active Humalog Pen 70/30 40 uints 12h Active Diclofenac Sodium & Capsaicin 1.5 & 0.025 % as directed Active HydrOXYzine HCl 25 MG Orally every 8 hrs PRN 1-2 tablet Aug, 30 day(s) Active Lisinopril 5 MG Orally Once a day 1 tablet 24h Active Metformin HCl 1000 MG Orally Twice a day 1 tablet with meals 12h Active Nitrostat 0.4 MG Active Aspir-81 81 MG Orally Once a day 1 tablet 24h Active RESULTS No Results PROCEDURES Procedure Date Ordered Result Body Site [facility] VISIT ESTABLISHED PATIENT September 26, 2016 INSTRUCTIONS MEDICATIONS ADMINISTERED No Known Medications MEDICAL (GENERAL) HISTORY Type Description Date Medical History Type 2 diabetes mellitus without complications Surgical History Back Surgery
--- OUTSIDE RECORDS SUMMARY | 2018-04-29 18:50 | XMS REPORT | Continuity of Care Document ---
Author Author [facility] Address Unknown Phone Unavailable Allergies Active Description Code Type Severity Reaction Onset Reported/Identified Relationship to Patient Clinical Status Yes NKDA N/A N/A Medications Medication Packaging Start Date Stop Date Route Dosage Sig ZOLPIDEM TARTRATE ORAL 03/14/2015 ORAL 3030 at bedtime VIAGRA ORAL 03/14/2015 04/26/2015 ORAL 66 prior to intercourse VENLAFAXINE HCL ER ORAL 03/14/2015 ORAL 3030 daily ROPINIROLE HCL ORAL 03/14/2015 ORAL 9090 at bedtime METOPROLOL TARTRATE ORAL 2014 ORAL 6060 daily METFORMIN HCL ORAL 03/14/2015 ORAL 6060 twice daily LISINOPRIL ORAL 03/14/2015 ORAL 3030 daily ASPIRIN EC ORAL 03/14/2015 ORAL 3030 daily ACYCLOVIR ORAL 03/14/2015 ORAL 6060 twice daily VIAGRA ORAL 04/26/2015 ORAL 66 prior to intercourse MEDROL ORAL 09/23/2015 09/28/2015 ORAL 2121 as directed HYDROXYZINE HCL ORAL 09/23/2015 10/03/2015 ORAL 4040 4 times a day Problems There is no data. Procedures There is no data. Results There is no data. Encounters ACCT No. Visit Date/Time Discharge Status Pt. Type Provider Facility Loc./Unit Complaint [id number] 10/04/2016 13:32:21 10/04/2016 23:59:59 CLS Outpatient Ryley Dan [id number] 03/22/2017 07:43:27 03/22/2017 07:43:27 DIS Outpatient Carlos [facility] [place]
[2018-04-29] MEDS ORDERED: NS IV 500 ML 500 ML IV ONE (18:52)
[2018-04-29 19:07] LABS: BASOPHILS % (AUTO) 0 % (0-10); EOSINOPHILS # (AUTO) 0.1 10^3/uL (0.0-0.3); EOSINOPHILS % (AUTO) 2 % (0-10); HEMATOCRIT 34 % (40-54); HEMOGLOBIN 11.2 G/DL (13.3-17.7); LYMPHOCYTES # (AUTO) 1.6 X 10^3 (1.0-4.0); LYMPHOCYTES % (AUTO) 31 % (12-44); MEAN CORPUSCULAR HEMOGLOBIN 28 PG (25-34); MEAN CORPUSCULAR HGB CONC 33 G/DL (32-36); MEAN CORPUSCULAR VOLUME 84 FL (80-99); MEAN PLATELET VOLUME 11.4 FL (7.4-10.4); MONOCYTES # (AUTO) 1.4 X 10^3 (0.0-1.0); MONOCYTES % (AUTO) 27 % (0-12); NEUTROPHILS # (AUTO) 2.1 X 10^3 (1.8-7.8); NEUTROPHILS % (AUTO) 40 % (42-75); PLATELET COUNT 190 10^3/uL (130-400); RED CELL DISTRIBUTION WIDTH 13.5 % (10.0-14.5); WHITE BLOOD COUNT 5.3 10^3/uL (4.3-11.0)
[2018-04-29 19:10] VITALS: BP 149/86
[2018-04-29 19:13] LABS: INR 1.2 (0.8-1.4); PROTHROMBIN TIME PATIENT 14.9 SEC (12.2-14.7)
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
[2018-04-29 19:40] LABS: EOSINOPHILS % (MANUAL) 2 %; LYMPHOCYTES % (MANUAL) 27 %; MONOCYTES % (MANUAL) 24 %; NEUTROPHILS % (MANUAL) 46 %; REACTIVE LYMPHOCYTES 1 %
[2018-04-29 19:45] LABS: ALANINE AMINOTRANSFERASE 12 U/L (0-55); ALBUMIN 3.9 GM/DL (3.2-4.5); ALKALINE PHOSPHATASE 64 U/L (40-136); BILIRUBIN,TOTAL 0.4 MG/DL (0.1-1.0); BUN/CREATININE RATIO 18; CARBON DIOXIDE 24 MMOL/L (21-32); CHLORIDE 102 MMOL/L (98-107); CREATININE SERUM 0.99 MG/DL (0.60-1.30); GFR ESTIMATED > 60; GLUCOSE 107 MG/DL (70-105); POTASSIUM 4.5 MMOL/L (3.6-5.0); SODIUM 139 MMOL/L (135-145); TOTAL PROTEIN 6.6 GM/DL (6.4-8.2)
[2018-04-29 19:51] LABS: MYOGLOBIN SERUM 45.6 NG/ML (10.0-92.0)
--- NOTE | 2018-04-29 19:52 | Diagnostic Imaging Report ---
PROCEDURE: CT head wo r/o stroke. TECHNIQUE: Multiple contiguous axial images were obtained through the brain without the use of intravenous contrast. INDICATION: Altered mental status. FINDINGS: There is generalized atrophy. There are no masses or hemorrhages. There are no extra-axial fluid collections. IMPRESSION: Diffuse cerebral degeneration. No acute abnormality is seen. CRITICAL FINDING Report given to Dr. Guevara at 7:50 p.m. 04/29/2018/cb Dictated by: Dictated on workstation # [id number]
[2018-04-29 20:51] LABS: BILIRUBIN,URINE NEGATIVE (NEGATIVE); CLARITY,URINE CLEAR; COLOR,URINE YELLOW; GLUCOSE, URINE (UA) NEGATIVE (NEGATIVE); KETONES,URINE NEGATIVE (NEGATIVE); LEUKOCYTE ESTERASE ,URINE NEGATIVE (NEGATIVE); NITRITE,URINE NEGATIVE (NEGATIVE); PH,URINE 5 (5-9); PROTEIN,URINE NEGATIVE (NEGATIVE); UROBILINOGEN,URINE NORMAL (NORMAL)
[2018-04-29] MEDS ORDERED: NS IV 1000 ML 1,000 ML IV ONE (20:54)
[2018-04-29 20:57] LABS: BACTERIA,URINE FEW /HPF; SQUAMOUS EPITHELIAL CELL,UR RARE /HPF
[2018-04-29] MEDS ORDERED: cefTRIAXone FOR IV USE 1,000 MG in NS (IVPB) 50 ML IV ONE (21:30)
--- NOTE | 2018-04-29 21:45 | NUR ---
Pt ripped out IV, so 2nd IV was started in right AC.
--- NOTE | 2018-04-29 22:13 | NUR ---
Pt ripped out second IV at this time.
[2018-04-29] MEDS ORDERED: CEPH500T PO (22:37)
--- NOTE | 2018-04-29 22:51 | NUR ---
called [facility] and gave report at this time. 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
[2018-04-29 23:24] VITALS: BP 136/84
--- NOTE | 2018-04-30 08:22 | Diagnostic Imaging Report ---
INDICATION: Altered mental status. FINDINGS: There is a dual-chamber pacemaker. There are postop changes from a median sternotomy. Heart size and pulmonary vascularity are normal. Lungs are clear. There is no effusion or pneumothorax. IMPRESSION: No acute abnormalities in the chest. Dictated by: Dictated on workstation # [id number]
== END 2018-04-29 23:23 | disposition home or self-care (01) ==
LOC: EDUNIT# 18:44 → ER 18:45
DX: N39.0 Urinary tract infection, site not specified (principal); E86.0 Dehydration; I25.10 Atherosclerotic heart disease of native coronary artery without angina pectoris; E78.00 Pure hypercholesterolemia, unspecified; I10 Essential (primary) hypertension; F03.90 Unspecified dementia, unspecified severity, without behavioral disturbance, psychotic disturbance, mood disturbance, and anxiety; K21.9 Gastro-esophageal reflux disease without esophagitis; E11.9 Type 2 diabetes mellitus without complications; F41.9 Anxiety disorder, unspecified; F10.10 Alcohol abuse, uncomplicated; Z79.82 Long term (current) use of aspirin; Z79.02 Long term (current) use of antithrombotics/antiplatelets; Z79.4 Long term (current) use of insulin; Z87.891 Personal history of nicotine dependence; Z98.890 Other specified postprocedural states
CPT/HCPCS: 36415; 70450; 71045; 80053; 81000; 83605; 83874; 84484; 85007; 85027; 85610; 85730; 87040; 87070; 87088; 87205; 87804; 93005

== ENCOUNTER 2018-05-26 08:36 | Emergency (ER) | payer MEDICARE ==
[~2018-05-26] VITALS: Ht 177.8 cm; Wt 86.2 kg
[~2018-05-26 08:36] MED LIST changes: +CEPH500T PO
--- NOTE | 2018-05-26 11:57 | Diagnostic Imaging Report ---
CLINICAL INDICATION: Patient complains of cough since Saturday. Patient denies shortness of air or chest pain. EXAM: Chest x-ray PA and lateral views. COMPARISONS: Chest x-ray dated 04/29/2018. FINDINGS: Lungs/pleura: There is slight improved aeration of both lungs compared to the prior study with residual slight elevation of the right hemidiaphragm seen. Stable calcified granuloma overlying the right upper lung field. Otherwise, lungs are clear. There is no pneumothorax. There is no pleural effusion. Mediastinum: Unremarkable. Pulmonary vasculature: Unremarkable. Heart: Heart size is within normal limits. Stable postop changes to the chest with sternotomy wires and cardiac pacemaker overlying the chest. Bones/extrathoracic soft tissue: There are degenerative spurs involving the thoracic spine. IMPRESSION: Slight improved aeration of both lungs compared to the prior study. Otherwise, stable chest x-ray exam with no interval radiographic evidence of acute cardiopulmonary process. Dictated by: Dictated on workstation # [id number]
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
[2018-05-26 12:21] VITALS: BP 151/52
== END 2018-05-26 12:24 | disposition home or self-care (01) ==
LOC: EDUNIT# 08:36 → ER 08:37
DX: R05 Cough (principal); R53.81 Other malaise; I25.10 Atherosclerotic heart disease of native coronary artery without angina pectoris; E78.00 Pure hypercholesterolemia, unspecified; I10 Essential (primary) hypertension; F03.90 Unspecified dementia, unspecified severity, without behavioral disturbance, psychotic disturbance, mood disturbance, and anxiety; K21.9 Gastro-esophageal reflux disease without esophagitis; E11.9 Type 2 diabetes mellitus without complications; F41.9 Anxiety disorder, unspecified; Z79.82 Long term (current) use of aspirin; Z79.02 Long term (current) use of antithrombotics/antiplatelets; Z79.4 Long term (current) use of insulin; Z87.891 Personal history of nicotine dependence; Z95.1 Presence of aortocoronary bypass graft; Z95.5 Presence of coronary angioplasty implant and graft
CPT/HCPCS: 71046; 87804

== ENCOUNTER → 2019-01-09 | Outpatient (CLI) | payer MEDICARE, MEDICAID ==
[~2019-01-09] MED LIST changes: -TRAZ-189 PO; +TRAZ-222 PO
--- NOTE | 2019-01-09 14:50 | Diagnostic Imaging Report ---
INDICATION: FOREIGN OBJECT ON R SIDE OF CHEST COMPARISON: 05/26/2018. FINDINGS: Single frontal view of the chest demonstrates normal heart size and pulmonary vascularity. The lungs are well aerated and clear. No large pleural effusion or pneumothorax is seen. The visualized osseous structures show no acute abnormalities. Left-sided dual-lead pacemaker and sternotomy wires are noted. No unexpected radiopaque foreign bodies are seen. IMPRESSION: 1. No acute cardiopulmonary process. 2. No unexpected radiopaque foreign bodies. Dictated by: Dictated on workstation # [id number]
== END ==
LOC: RAD 13:50
PROVIDERS: ATTEND Family Medicine
DX: S20.351A Superficial foreign body of right front wall of thorax, initial encounter (principal); Z95.0 Presence of cardiac pacemaker
CPT/HCPCS: 71045

== ENCOUNTER 2019-03-23 08:36 | Inpatient (IN) | payer MEDICARE, MEDICAID ==
[~2019-03-23] VITALS: Ht 177 cm; Wt 85.5 kg
[2019-03-23] VITALS (12 sets, daily range): BP systolic 104–152; BP diastolic 50–77
[2019-03-23] MEDS ORDERED: NS IV 1000 ML 1,000 ML IV SCH ×3 (08:45→09:09)
[2019-03-23] MEDS ORDERED: CEFEPIME INJECTION 1,000 MG in WATER (STERILE) FOR INJECTION 10 ML IV ONE (08:45)
--- NOTE | 2019-03-23 08:52 | ED General ---
General Stated Complaint: VOMITING;FEVER Source of Information: Patient, EMS, Jail Records Exam Limitations: Other (advanced dementia) (MOLLY MANJARREZ) History of Present Illness Date Seen by Provider: Mar 23, 2019 Time Seen by Provider: 08:30 Initial Comments Patient presents to ER by EMS from [facility] with chief complaint that this morning when he checked his blood sugar it was 130 and he was acting confused week and had a fever of 101. Nursing staff gave rectal Tylenol. EMS made 2 attempts for IV and transported the patient. Patient had an occasional, dry cough. No history of smoking or COPD. Does have a history of diabetes, pacemaker, GERD, anxiety. He was 92% on room air so EMS put 2 L on him. On arrival nursing noted him to be 88% on room air. Patient answer some questions yes or no and is oriented to self but does not give a history. At baseline patient does not use supplemental oxygen and we will get up and walk to the bathroom on his own. (MOLLY MANJARREZ) Allergies and Home Medications Allergies Coded Allergies: No Known Drug Allergies (Unverified , 10/27/16) Home Medications Acetaminophen 325 Mg Tablet, 650 MG PO Q4H PRN for MILD PAIN/FEVER, (Reported) Aspirin 81 Mg Tablet.dr, 81 MG PO DAILY, (Reported) Carvedilol 3.125 Mg Tablet, 3.125 MG PO BID, (Reported) HOLD FOR BP LESS THAN 100/60 AND PULSE LESS THAN 60 Cephalexin 500 Mg Tablet, 500 MG PO BID Prescribed by: ALESSANDRO HOPKINS on 04/29/182236 Cholecalciferol (Vitamin D3) 1,000 Unit Capsule, 1,000 UNIT PO DAILY, (Reported) Clopidogrel Bisulfate 75 Mg Tablet, 75 MG PO DAILY, (Reported) Docusate Sodium 100 Mg Capsule, 100 MG PO BID, (Reported) Donepezil HCl 10 Mg Tablet, 10 MG PO HS, (Reported) Glucagon,Human Recombinant 1 Mg/Kit Soln, 1 MG IJ UD PRN for HYPOGLYCEMIA, (Reported) Hydroxyzine HCl 25 Mg Tablet, 25 MG PO BID, (Reported) Insulin Aspart 300 Units/3 Ml Solution, SQ EVENING, (Reported) 0-59 = 0 CALL PHYSICIAN 60-200 = 0 201-250 = 3 UNITS 251-300 = 5 UNITS 301- 350 = 7 UNITS 351-400 = 9 UNITS 401-999 = 9 UNITS CALL PHYSICAIN Insulin NPH Human Isophane 100 Unit/1 Ml Vial, 10 UNIT SQ DAILY, (Reported) Lisinopril 5 Mg Tablet, 5 MG PO DAILY, (Reported) HOLD FOR BP LESS THAN 100/60 AND PULSE LESS THAN 60 Magnesium Hydroxide 400 Mg/5 Ml Oral.susp, 30 ML PO DAILY PRN for CONSTIPATION- 7TH LINE, (Reported) Memantine HCl 10 Mg Tablet, 10 MG PO BID, (Reported) Ondansetron 8 Mg Tab.rapdis, 8 MG PO Q6H PRN for NAUSEA/VOMITING-1ST LINE, (Reported) Pantoprazole Sodium 40 Mg Tablet.dr, 40 MG PO DAILY, (Reported) Promethazine HCl/Codeine 118 Ml Syrup, 10 ML PO Q8H PRN for COUGH, (Reported) Risperidone 1 Mg Tablet, 1 MG PO DAILY, (Reported) Simvastatin 40 Mg Tablet, 40 MG PO HS, (Reported) Tramadol HCl 50 Mg Tablet, 50 MG PO TID, (Reported) Trazodone HCl 50 Mg Tablet, 50 MG PO HS PRN for INSOMNIA, (Reported) Patient Home Medication List Home Medication List Reviewed: Yes (MOLLY MANJARREZ) Review of Systems Review of Systems Constitutional: see HPI (Review of systems per staff); No chills, No diaphoresis EENTM: No ear discharge, No ear pain Respiratory: cough; No short of breath, No wheezing Cardiovascular: No chest pain, No palpitations Gastrointestinal: No abdominal pain, No constipation, No diarrhea, No nausea, No vomiting Genitourinary: No dysuria; incontinence Musculoskeletal: No back pain, No joint pain Skin: No pruritus, No rash (MOLLY MANJARREZ) All Other Systems Reviewed Negative Unless Noted: Yes (MOLLY MANJARREZ) Past Sfonulo-Uohwvc-Obikig Hx Patient Social History Alcohol Use: Past History Alcohol Beverage of Choice: Beer Recreational Drug Use: No Smoking Status: Current Everyday Smoker Type Used: Cigarettes 2nd Hand Smoke Exposure: No Recent Hopitalizations: Yes (pacemaker) (MOLLY MANJARREZ) Immunizations Up To Date Tetanus Booster (TDap): Unknown Date of Pneumonia Vaccine: Apr 02, 2017 Date of Influenza Vaccine: Feb 05, 2017 (MOLLY MANJARREZ) Seasonal Allergies Seasonal Allergies: No (MOLLY MANJARREZ) Past Medical History Surgeries: Yes Cardiac, CABG, Pacemaker Respiratory: No Cardiac: Yes (PACEMAKER) Coronary Artery Disease, High Cholesterol, Hypertension Neurological: Yes Dementia Genitourinary: No Gastrointestinal: Yes Gastroesophageal Reflux Musculoskeletal: No Endocrine: Yes Diabetes, Insulin dep HEENT: No Cancer: No Psychosocial: Yes (etoh abuse) Anxiety Integumentary: No (MOLLY MANJARREZ) Family Medical History No Pertinent Family Hx (MOLLY MANJARREZ) Physical Exam-Suspected Sepsis Physical Exam Vital Signs Vital Signs - First Documented 03/23/19 08:53 Temp 36.7 Pulse 130 Resp 20 B/P (MAP) 91/57 (68) Pulse Ox 95 O2 Delivery Nasal Cannula O2 Flow Rate 2.00 (DMITRY ZAZUETA APRN) Vital Signs Capillary Refill : (MOLLY MANJARREZ) Height, Weight, BMI Height: 5'10.00" Weight: 190lbs. 0oz. 86.126211sb; 29.2 BMI Method:Stated General Appearance: WD/WN, Moderate Distress Eyes: Bilateral Eye Normal Inspection, Bilateral Eye PERRL, Bilateral Eye EOMI HEENT: PERRL/EOMI, TMs Normal, Normal ENT Inspection, Pharynx Normal; No Moist Mucous Membranes Neck: Full Range of Motion, Normal Inspection Respiratory: No Accessory Muscle Use, Decreased Breath Sounds, Respiratory Distress (wlrb-zl-[id number] with oxygen sats of 88% on room air) Cardiovascular: Regular Rate, Rhythm, No Edema, Normal Peripheral Pulses, Tachycardia Gastrointestinal: Normal Bowel Sounds, Non Tender, Soft Extremity: Normal Capillary Refill, Normal Inspection, No Pedal Edema Neurologic/Psychiatric: Alert, No Motor/Sensory Deficits, Normal Mood/Affect Skin: normal color, warm/dry Lymphatic: No Adenopathy (MOLLY MANJARREZ) Focused Exam Lactate Level 03/23/19 08:41: Lactic Acid Level 1.48 (DMITRY ZAZUETA APRN) Lactic Acid Level Laboratory Tests Test 03/23/19 08:41 Lactic Acid Level 1.48 MMOL/L (0.50-2.00) (DMITRY ZAZUETA APRN) Procedures/Interventions Lumen: triple Central Line Procedure: betadine prep, sterile drapes applied, sterile dressing applied Position: internal jugular (R) Anesthesia: Lidocaine Volume Anesthetic (ccs): 4 Complications: none Post Position: sutured, good blood return, position confirmed w/ CXR (DMITRY ZAZUETA APRN) Progress/Results/Core Measures Suspected Sepsis SIRS Temperature: Pulse: Respiratory Rate: Laboratory Tests 03/23/19 08:41: White Blood Count 12.2H Blood Pressure / Mean: 03/23/19 08:41: Lactic Acid Level 1.48 Laboratory Tests 03/23/19 08:41: Creatinine 1.06, INR Comment 1.1, Platelet Count 165, Total Bilirubin 0.6 (MOLLY MANJARREZ) Results/Orders Lab Results Laboratory Tests Test 03/23/19 08:41 03/23/19 09:32 03/23/19 10:31 Range/Units White Blood Count 12.2 H 4.3-11.0 10^3/uL Red Blood Count 4.15 L 4.35-5.85 10^6/uL Hemoglobin 12.1 L 13.3-17.7 G/DL Hematocrit 35 L 40-54 % Mean Corpuscular Volume 84 80-99 FL Mean Corpuscular Hemoglobin 29 25-34 PG Mean Corpuscular Hemoglobin Concent 35 32-36 G/DL Red Cell Distribution Width 13.9 10.0-14.5 % Platelet Count 165 130-400 10^3/uL Mean Platelet Volume 11.5 H 7.4-10.4 FL Neutrophils (%) (Auto) 73 42-75 % Lymphocytes (%) (Auto) 4 L 12-44 % Monocytes (%) (Auto) 23 H 0-12 % Eosinophils (%) (Auto) 0 0-10 % Basophils (%) (Auto) 0 0-10 % Neutrophils # (Auto) 8.9 H 1.8-7.8 X 10^3 Lymphocytes # (Auto) 0.5 L 1.0-4.0 X 10^3 Monocytes # (Auto) 2.8 H 0.0-1.0 X 10^3 Eosinophils # (Auto) 0.0 0.0-0.3 10^3/uL Basophils # (Auto) 0.0 0.0-0.1 10^3/uL Neutrophils % (Manual) 62 % Lymphocytes % (Manual) 3 % Monocytes % (Manual) 18 % Eosinophils % (Manual) 0 % Basophils % (Manual) 0 % Band Neutrophils 17 % Blood Morphology Comment NORMAL Prothrombin Time 14.6 12.2-14.7 SEC INR Comment 1.1 0.8-1.4 Activated Partial Thromboplast Time 33 24-35 SEC Sodium Level 137 135-145 MMOL/L Potassium Level 4.9 3.6-5.0 MMOL/L Chloride Level 102 98-107 MMOL/L Carbon Dioxide Level 23 21-32 MMOL/L Anion Gap 12 5-14 MMOL/L Blood Urea Nitrogen 17 7-18 MG/DL Creatinine 1.06 0.60-1.30 MG/DL Estimat Glomerular Filtration Rate > 60 BUN/Creatinine Ratio 16 Glucose Level 126 H 70-105 MG/DL Lactic Acid Level 1.48 0.50-2.00 MMOL/L Calcium Level 9.7 8.5-10.1 MG/DL Corrected Calcium 9.6 8.5-10.1 MG/DL Total Bilirubin 0.6 0.1-1.0 MG/DL Aspartate Amino Transf (AST/SGOT) 11 5-34 U/L Alanine Aminotransferase (ALT/SGPT) 9 0-55 U/L Alkaline Phosphatase 54 40-136 U/L Total Protein 6.9 6.4-8.2 GM/DL Albumin 4.1 3.2-4.5 GM/DL Blood Gas Puncture Site RT RAD Blood Gas Patient Temperature 98.0 Arterial Blood pH 7.40 7.37-7.43 Arterial Blood Partial Pressure CO2 36 35-45 MMHG Arterial Blood Partial Pressure O2 91 79-93 MMHG Arterial Blood HCO3 22 L 23-27 MMOL/L Arterial Blood Total CO2 23.3 21.0-31.0 MMOL/L Arterial Blood Oxygen Saturation 97 94-100 % Arterial Blood Base Excess -2.0 -2.5-2.5 MMOL/L Solis Test YES-POS Blood Gas Ventilator Setting NO Blood Gas Inspired Oxygen 1.5 L Urine Color YELLOW Urine Clarity CLEAR Urine pH 6.0 5-9 Urine Specific [place] 1.025 H 1.016-1.022 Urine Protein NEGATIVE NEGATIVE Urine Glucose (UA) NEGATIVE NEGATIVE Urine Ketones 1+ H NEGATIVE Urine Nitrite NEGATIVE NEGATIVE Urine Bilirubin NEGATIVE NEGATIVE Urine Urobilinogen 1.0 < = 1.0 MG/DL Urine Leukocyte Esterase NEGATIVE NEGATIVE Urine RBC (Auto) NEGATIVE NEGATIVE Urine RBC NONE /HPF Urine WBC NONE /HPF Urine Squamous Epithelial Cells RARE /HPF Urine Crystals NONE /LPF Urine Bacteria NEGATIVE /HPF Urine Casts NONE /LPF Urine Mucus NEGATIVE /LPF Urine Culture Indicated CULTURE PENDING (DMITRY ZAZUETA APRN) Micro Results Microbiology 12/23/19 Influenza Types A,B Antigen (BRANDON) - Final, Complete (DMITRY ZAZUEAT APRN) Medications Given in ED Current Medications Medications Dose Ordered Sig/Serina Route Start Time Stop Time Status Last Admin Dose Admin Albuterol/ Ipratropium 3 ml ONCE ONCE INH 03/23/19 09:15 03/23/19 09:17 DC 03/23/19 09:28 3 ML Cefepime HCl 1000 mg/Sterile Water 10 ml @ 200 mls/hr ONCE ONCE IV 03/23/19 08:45 03/23/19 08:50 DC 03/23/19 09:20 200 MLS/HR (DMITRY ZAZUETA APRN) Vital Signs/I&O 03/23/19 03/23/19 08:53 09:30 Temp 36.7 Pulse 130 Resp 20 B/P (MAP) 91/57 (68) Pulse Ox 95 99 O2 Delivery Nasal Cannula Nasal Cannula O2 Flow Rate 2.00 1.50 (DMITRY ZAZUETA APRN) Vital Signs/I&O Capillary Refill : (MOLLY MANJARREZ) Progress Note #1: Time: 09:14 Progress Note Septic workup with 30 mL/kg fluid bolus initially. His blood sugars 1:30 per EMS. Plan to check urine chest x-ray given breathing treatment for his diminished breath sounds put him on 2 L of oxygen by nasal cannula and get an ABG. Progress Note #2: Time: 12:20 Progress Note Dmitry Zazueta APRN was kind enough to put a central line in which was in good placement on the post central line x-ray. We started him on Levophed because his blood pressure got worse with a map of 58-60. His blood pressure has recovered with Trendelenburg and IV fluids at 250 an hour normal saline. We have reduced the vasopressors and continue the fluids and flatten him out. He is still comfortable. We had a conversation with his son Rajeev who his the DPOA and he does not want the patient to be intubated, DO NOT INTUBATE/DO NOT RESUSCITATE. He also feels that the patient would prefer to be comfort cares only but he wants to come in and meet with the provider's to make a decision in the morning. We will continue the course of treatment. (JOSSELINE,MOLLY J) Diagnostic Imaging Diagonstic Imaging: Xray Plain Films/CT/US/NM/MRI: chest (1 view) Comments [facility] [place] [place] NAME: MARELY COWART [facility] REC#: [id number] PT STATUS: REG ER : 1940 PHYSICIAN: MOLLY MANJARREZ MD ADMIT DATE: 03/23/19/ER Draft Date of Exam:03/23/19 CHEST 1 VIEW, AP/PA ONLY HISTORY: Vomiting and fever. TECHNIQUE: Frontal view of the chest. COMPARISON: 01/09/2019 FINDINGS: There is new dense consolidation in the left midlung peripherally. Lung volumes are mildly low. The cardiac silhouette is stable in size. Left-sided pacemaker leads are in expected position. Multiple fractured sternotomy wires are noted. There is aortic atherosclerosis. No pleural effusion or pneumothorax is seen. IMPRESSION: 1. Pneumonia in the left midlung. Dictated on workstation # [id number] Dict: 03/23/1931 Trans: 03/23/19 0936 [facility] [id number] Interpreted by: ZAINAB PRIETO MD Electronically signed by: Reviewed: Reviewed by Me Diagonstic Imaging: Xray Plain Films/CT/US/NM/MRI: chest Comments [facility] [place] [place] NAME: MARELY COWART [facility] REC#: [id number] PT STATUS: REG ER : 1940 PHYSICIAN: MOLLY MANJARREZ MD ADMIT DATE: 03/23/19/ER Draft Date of Exam:03/23/19 CHEST 1 VIEW, AP/PA ONLY INDICATION: Central line placement. TIME OF EXAM: 11:21 a.m. FINDINGS: Right IJ line has tip overlying the SVC. Changes of median sternotomy are noted. Cardiac pacer is in place. There is some airspace infiltrate in the left base suggestive of pneumonia. Right lung is clear. There is no effusion. No pneumothorax is identified. IMPRESSION: 1. Satisfactory central line placement. No pneumothorax is seen. 2. Patchy left basilar pneumonia. Dictated on workstation # [id number] Dict: 03/23/19 1134 Trans: 03/23/19 1136 [id number] Interpreted by: SHANNAN GARAY MD Electronically signed by: Reviewed: Reviewed by Me (MOLLY MANJARREZ) Departure Communication (Admissions) Time/Spoke to Admitting Phy: 11:50 Dr. Ratliff agrees with antibiotic choice, ICU, pressors and consult social science teacher to discussed goals of care with the family as well as consult Dr. Kim, pulmonology Time/Spoke to Consulting Phy: 12:00 Discussed case lab and imaging with Dr. Kim and he consulted patient today. (MOLLY MANJARREZ) Impression Primary Impression: Septic shock Additional Impressions: Pneumonia Qualified Codes: J18.9 - Pneumonia, unspecified organism Hypoxia Disposition: ADMITTED INPATIENT Condition: Critical Admissions Decision to Admit Reason: Admit from ER (General) Decision to Admit/Date: Mar 23, 2019 Time/Decision to Admit Time: 11:00 (MOLLY MANJARREZ) Departure-Patient Inst. Referrals: GISELL RATLIFF DO (PCP/Family) Primary Care Physician MOLLY MANJARREZ Mar 23, 2019 08:52 DMITRY ZAZUETA APRN Mar 23, 2019 11:15
[2019-03-23 08:58] LABS: BASOPHILS % (AUTO) 0 % (0-10); EOSINOPHILS % (AUTO) 0 % (0-10); HEMATOCRIT 35 % (40-54); HEMOGLOBIN 12.1 G/DL (13.3-17.7); LYMPHOCYTES # (AUTO) 0.5 X 10^3 (1.0-4.0); LYMPHOCYTES % (AUTO) 4 % (12-44); MEAN CORPUSCULAR HEMOGLOBIN 29 PG (25-34); MEAN CORPUSCULAR HGB CONC 35 G/DL (32-36); MEAN CORPUSCULAR VOLUME 84 FL (80-99); MEAN PLATELET VOLUME 11.5 FL (7.4-10.4); MONOCYTES # (AUTO) 2.8 X 10^3 (0.0-1.0); MONOCYTES % (AUTO) 23 % (0-12); NEUTROPHILS # (AUTO) 8.9 X 10^3 (1.8-7.8); NEUTROPHILS % (AUTO) 73 % (42-75); PLATELET COUNT 165 10^3/uL (130-400); RED CELL DISTRIBUTION WIDTH 13.9 % (10.0-14.5); WHITE BLOOD COUNT 12.2 10^3/uL (4.3-11.0)
[2019-03-23 09:10] LABS: INR 1.1 (0.8-1.4); PROTHROMBIN TIME PATIENT 14.6 SEC (12.2-14.7)
[2019-03-23] MEDS ORDERED: RT-ALBUTEROL/IPRATROPIUM 3 ML (DUONEB) VIAL INH ONE (09:15)
[2019-03-23 09:18] LABS: ALANINE AMINOTRANSFERASE 9 U/L (0-55); ALBUMIN 4.1 GM/DL (3.2-4.5); ALKALINE PHOSPHATASE 54 U/L (40-136); BILIRUBIN,TOTAL 0.6 MG/DL (0.1-1.0); BUN/CREATININE RATIO 16; CALCIUM 9.7 MG/DL (8.5-10.1); CARBON DIOXIDE 23 MMOL/L (21-32); CHLORIDE 102 MMOL/L (98-107); CREATININE SERUM 1.06 MG/DL (0.60-1.30); GFR ESTIMATED > 60; GLUCOSE 126 MG/DL (70-105); POTASSIUM 4.9 MMOL/L (3.6-5.0); SODIUM 137 MMOL/L (135-145); TOTAL PROTEIN 6.9 GM/DL (6.4-8.2)
--- NOTE | 2019-03-23 09:36 | Diagnostic Imaging Report ---
HISTORY: Vomiting and fever. TECHNIQUE: Frontal view of the chest. COMPARISON: 01/09/2019 FINDINGS: There is new dense consolidation in the left midlung peripherally. Lung volumes are mildly low. The cardiac silhouette is stable in size. Left-sided pacemaker leads are in expected position. Multiple fractured sternotomy wires are noted. There is aortic atherosclerosis. No pleural effusion or pneumothorax is seen. IMPRESSION: 1. Pneumonia in the left midlung. Dictated by: Dictated on workstation # [id number]
[2019-03-23 09:42] LABS: BAND NEUTROPHILS 17 %; BASOPHILS % (MANUAL) 0 %; EOSINOPHILS % (MANUAL) 0 %; LYMPHOCYTES % (MANUAL) 3 %; MONOCYTES % (MANUAL) 18 %; NEUTROPHILS % (MANUAL) 62 %; RBC MORPH NORMAL
[2019-03-23 09:43] LABS: ABG OXYGEN SATURATION 97 % (94-100); ABG PCO2 36 MMHG (35-45); ABG PO2 91 MMHG (79-93); ABG TCO2 23.3 MMOL/L (21.0-31.0)
[2019-03-23 09:44] LABS: ALLENS TEST YES-POS; INSPIRED O2 1.5 L; VENTILATOR NO
[2019-03-23 10:42] LABS: BILIRUBIN,URINE NEGATIVE (NEGATIVE); CLARITY,URINE CLEAR; COLOR,URINE YELLOW; GLUCOSE, URINE (UA) NEGATIVE (NEGATIVE); KETONES,URINE 1+ (NEGATIVE); LEUKOCYTE ESTERASE ,URINE NEGATIVE (NEGATIVE); NITRITE,URINE NEGATIVE (NEGATIVE); PROTEIN,URINE NEGATIVE (NEGATIVE)
[2019-03-23 10:51] LABS: BACTERIA,URINE NEGATIVE /HPF; SQUAMOUS EPITHELIAL CELL,UR RARE /HPF
[2019-03-23] MEDS ORDERED: NS IV 1000 ML 1,000 ML IV ONE (11:30)
--- NOTE | 2019-03-23 11:36 | Diagnostic Imaging Report ---
INDICATION: Central line placement. TIME OF EXAM: 11:21 a.m. FINDINGS: Right IJ line has tip overlying the SVC. Changes of median sternotomy are noted. Cardiac pacer is in place. There is some airspace infiltrate in the left base suggestive of pneumonia. Right lung is clear. There is no effusion. No pneumothorax is identified. IMPRESSION: 1. Satisfactory central line placement. No pneumothorax is seen. 2. Patchy left basilar pneumonia. Dictated by: Dictated on workstation # [id number]
[2019-03-23] MEDS ORDERED: NOREPINEPHRINE 4 MG in NS (IVPB) 250 ML IV SCH (11:45)
[2019-03-23] MEDS ORDERED: VANCOMYCIN INJECTION 1,000 MG in NS (IVPB) 250 ML IV ONE (12:15)
[2019-03-23] MEDS ORDERED: VANCOMYCIN INJECTION 1,250 MG in NS (IVPB) 250 ML IV NR (13:38)
[2019-03-23] MEDS ORDERED: EPINEPHrine 1 MG INJECTION 2 MG in NS (IVPB) 250 ML IV SCH (13:45)
[2019-03-23] MEDS ORDERED: ONDANSETRON 4 MG/2 ML (SDV) Z0FRAN IV PRN (13:45)
[2019-03-23] MEDS ORDERED: ACETAMINOPHEN 500 MG TAB (TYLENOL) PO PRN (13:45)
--- NOTE | 2019-03-23 14:00 | NUR ---
PTD VANCOMYCIN LABS: SCR 1.06 (CRCL ~ 68) PLAN: 25 MG/KG ~ VANCOMYCIN 2,250MG IV X 1 (1 GRAM GIVEN IN ED, ORDERED 1,250MG IV X 1) THEN 15 MG/KG ~ 1,500 MG IV [id number], NEXT DOSE DUE AT 03/24 @ 0000. CHECKING TROUGH LEVEL PRIOR TO 3RD DOSE @ 1100 ON 03/24.
[2019-03-23] MEDS: NS IV 1000 ML 1,000 ML IV SCH ×3 (14:45→21:35)
[2019-03-23] MEDS ORDERED: DONE5TAB30 PO (15:15)
[2019-03-23] MEDS ORDERED: CARV6.252 PO (15:15)
[2019-03-23] MEDS ORDERED: BISA10SU8 RC (15:24)
[2019-03-23] MEDS ORDERED: MECL12.579 PO (15:24)
[2019-03-23] MEDS ORDERED: DEXT37.54 PO (15:24)
[2019-03-23] MEDS ORDERED: METF-399 PO (15:25)
--- NOTE | 2019-03-23 15:26 | NUR ---
ENTERED MED REC FROM THE ORDER SUMMARY REPORT FROM [facility] AND [facility]
[2019-03-23] MEDS ORDERED: RT-ALBUTEROL/IPRATROPIUM 3 ML (DUONEB) VIAL INH PRN (16:00)
[2019-03-23] MEDS: VANCOMYCIN 1500 MG/NS 500 ML IVPB IV SCH ×6 (16:23→23:09)
[2019-03-23] MEDS: NOREPINEPHRINE 4 MG in NS (IVPB) 250 ML IV SCH ×2 (16:24→20:08)
[2019-03-23] MEDS: VASOPRESSIN INJECTION 20 UNIT in NORMAL SALINE 100 ML IV SCH ×2 (16:25→21:35)
[2019-03-23] MEDS: inSUlin ASPART (NovoLOG) 1 UNIT/0.01 ML (CHARGE PER UNIT) SC SCH ×2 (16:26→20:08)
[2019-03-23] MEDS: PANTOPRAZOLE 40 MG (PROTONIX) TAB PO SCH (16:43)
--- NOTE | 2019-03-23 18:23 | History & Physical ---
History of Present Illness History of Present Illness Reason for visit/HPI [facility] [place] [facility] [place]. I received a call from the nurse that the patient is confused and running an elevated temperature of 101. Patient sent out to the emergency room and chest x-ray shows pneumonia. Patient's blood pressure was low was put on Levophed. Patient has history of diabetes, pacemaker, GERD, anxiety and dementia. Patient transferred to ICU. Patient's on heart medicines and Plavix and aspirin Date of Admission Mar 23, 2019 at 12:08 Time Seen by a Provider: 18:19 I consulted on this patient on 03/23/19 18:19 Attending Physician Tank Ratliff DO Admitting Physician Tank Ratliff DO Consult Allergies and Home Medications Allergies Coded Allergies: No Known Drug Allergies (Unverified , 10/27/16) Home Medications Acetaminophen 325 Mg Tablet, 650 MG PO Q4H PRN for MILD PAIN/FEVER, (Reported) Aspirin 81 Mg Tablet.dr, 81 MG PO DAILY, (Reported) Bisacodyl 10 Mg Supp.rect, 10 MG RC DAILY PRN for CONSTIPATION-4TH LINE, (Reported) ONLY USE IF MILK OF MAGNESIA IS NOT EFFECTIVE Carvedilol 6.25 Mg Tablet, 6.25 MG PO BID, (Reported) HOLD FOR CANDACE LESS THEN 100/60 AND PULSE LESS THAN 60 Cholecalciferol (Vitamin D3) 1,000 Unit Capsule, 1,000 UNIT PO DAILY, (Reported) Clopidogrel Bisulfate 75 Mg Tablet, 75 MG PO DAILY, (Reported) Dextrose 37.5 Gm Gel..gram., 1 PACKET PO EVERY 15 MINUTES PRN for HYPOGLYCEMIA, (Reported) AFTER 3 DOSES IF NO CHANGE IN BS OR CHANGE IN PUNEET GIVE GLUCOAGON AND NOTIFY PCP Docusate Sodium 100 Mg Capsule, 100 MG PO BID, (Reported) Donepezil HCl 5 Mg Tablet, 10 MG PO HS, (Reported) Glucagon,Human Recombinant 1 Mg/Kit Soln, 1 MG IJ UD PRN for HYPOGLYCEMIA, (Reported) USE FOR GLUCOSE <60 Hydroxyzine HCl 25 Mg Tablet, 25 MG PO HS, (Reported) Insulin Aspart 300 Units/3 Ml Solution, SQ EVENING, (Reported) 0-59 = 0 CALL PHYSICIAN 60-200 = 0 201-250 = 3 UNITS 251-300 = 5 UNITS 301- 350 = 7 UNITS 351-400 = 9 UNITS 401-999 = 9 UNITS CALL PHYSICAIN Insulin NPH Human Isophane 100 Unit/1 Ml Vial, 10 UNIT SQ DAILY, (Reported) NOTIFY PCP OF BS <60 OR >400 Lisinopril 5 Mg Tablet, 5 MG PO DAILY, (Reported) HOLD FOR BP LESS THAN 100/60 AND PULSE LESS THAN 60 Magnesium Hydroxide 400 Mg/5 Ml Oral.susp, 30 ML PO DAILY PRN for CONSTIPATION- 7TH LINE, (Reported) Meclizine HCl 12.5 Mg Tablet, 25 MG PO TID, (Reported) TAKES 2 (12.5MG)TABS Memantine HCl 10 Mg Tablet, 10 MG PO BID, (Reported) Metformin HCl 1,000 Mg Tablet, 1,000 MG PO BID, (Reported) Ondansetron 8 Mg Tab.rapdis, 8 MG PO Q8H PRN for NAUSEA/VOMITING-1ST LINE, (Reported) Pantoprazole Sodium 40 Mg Tablet.dr, 40 MG PO DAILY, (Reported) Risperidone 1 Mg Tablet, 0.5 MG PO DAILY, (Reported) TAKE OF A 1MG TAB TO EQUAL 0.5MG DAILY Simvastatin 40 Mg Tablet, 40 MG PO HS, (Reported) Tramadol HCl 50 Mg Tablet, 50 MG PO BID, (Reported) Patient Home Medication List Home Medication List Reviewed: Yes Past Aklngdg-Tuzkmj-Knacef Hx Past Med/Social Hx: Reviewed Nursing Past Med/Soc Hx Patient Social History Employed/Student: retired Alcohol Use: Past History Number of Drinks Today: AA Alcohol Beverage of Choice: Beer Recreational Drug Use: No Smoking Status: Current Everyday Smoker Type Used: Cigarettes 2nd Hand Smoke Exposure: No Recent Foreign Travel: No Contact w/other who traveled: No Recent Hopitalizations: Yes (pacemaker) Recent Infectious Disease Expo: No Immunizations Up To Date Tetanus Booster (TDap): Unknown Date of Pneumonia Vaccine: Apr 02, 2017 Date of Influenza Vaccine: Feb 05, 2017 Seasonal Allergies Seasonal Allergies: No Past Medical History Surgeries: Cardiac, CABG, Pacemaker Cardiac: Coronary Artery Disease, High Cholesterol, Hypertension Neurological: Dementia Gastrointestinal: Gastroesophageal Reflux Endocrine: Diabetes, Insulin dep Psychosocial: Anxiety Family History No Pertinent Family Hx Review of Systems Constitutional: malaise, weakness EENTM: no symptoms reported Respiratory: cough, other (X-ray pneumonia) Cardiovascular: no symptoms reported Gastrointestinal: no symptoms reported Genitourinary: no symptoms reported Physical Exam Vital Signs Vital Signs - First Documented Capillary Refill : Less Than 3 Seconds Height, Weight, BMI Height: 5'10.00" Weight: 190lbs. 0oz. 86.304964gb; 30.00 BMI Method:Stated General Appearance: No Apparent Distress, WD/WN Eyes: Bilateral Eye Normal Inspection HEENT: Normal ENT Inspection Neck: Full Range of Motion, Normal Inspection Respiratory: No Accessory Muscle Use, No Respiratory Distress, Decreased Breath Sounds Cardiovascular: Regular Rate, Rhythm Gastrointestinal: Non Tender, Soft Assessment/Plan Assessment and Plan Pneumonia. Hypotension. Coronary artery disease. Pacemaker. Sepsis. Confusion Admission Diagnosis Admission Status: Inpatient Order (span 2 midnights) Reason for Inpatient Admission: Pneumonia. Confusion. Dementia. Febrile. Coronary artery disease Clinical Quality Measures DVT/VTE Risk/Contraindication: Risk Factor Score Per Nursin RFS Level Per Nursing on Admit: 4+=Very High TANK RATLIFF DO Mar 23, 2019 18:23
[2019-03-23] MEDS: RT-ALBUTEROL/IPRATROPIUM 3 ML (DUONEB) VIAL INH SCH ×2 (18:26→21:23)
[2019-03-23] MEDS ORDERED: BISACODYL 10 MG SUPP (DULCOLAX) RC PRN (18:30)
[2019-03-23] MEDS ORDERED: ACETAMINOPHEN 325 MG TABLET PO PRN (18:30)
[2019-03-23] MEDS: CEFEPIME 1,000 MG/SWFI 10 ML IV PUSH IV SCH ×4 (18:45→23:09)
[2019-03-23] MEDS: CARVEDILOL 6.25 MG (COREG) TAB PO SCH (20:09)
[2019-03-23] MEDS: SIMvastatin 40 MG (ZOCOR) TAB PO SCH (20:09)
[2019-03-23] MEDS: MEMANTINE 10 MG (NAMENDA) TABLET PO SCH (20:09)
[2019-03-23] MEDS: DOCUSATE SODIUM 100 MG (COLACE) CAP PO SCH (20:09)
[2019-03-23] MEDS: DONEPEZIL 5 MG (ARICEPT) TAB PO SCH (20:09)
[2019-03-23] MEDS ORDERED: ENOXAPARIN 40 MG/0.4 ML (LOVENOX) SYR SQ SCH (21:00)
[2019-03-24] VITALS (16 sets, daily range): BP systolic 96–154; BP diastolic 44–91
[2019-03-24] MEDS: RT-ALBUTEROL/IPRATROPIUM 3 ML (DUONEB) VIAL INH SCH ×6 (01:31→21:48)
[2019-03-24] MEDS: NOREPINEPHRINE 4 MG in NS (IVPB) 250 ML IV SCH ×2 (02:37→10:07)
[2019-03-24 03:40] LABS: BASOPHILS % (AUTO) 0 % (0-10); EOSINOPHILS % (AUTO) 0 % (0-10); HEMATOCRIT 31 % (40-54); HEMOGLOBIN 10.4 G/DL (13.3-17.7); LYMPHOCYTES # (AUTO) 1.1 X 10^3 (1.0-4.0); LYMPHOCYTES % (AUTO) 9 % (12-44); MEAN CORPUSCULAR HEMOGLOBIN 28 PG (25-34); MEAN CORPUSCULAR HGB CONC 33 G/DL (32-36); MEAN CORPUSCULAR VOLUME 86 FL (80-99); MEAN PLATELET VOLUME 11.5 FL (7.4-10.4); MONOCYTES # (AUTO) 3.3 X 10^3 (0.0-1.0); MONOCYTES % (AUTO) 27 % (0-12); NEUTROPHILS # (AUTO) 7.7 X 10^3 (1.8-7.8); NEUTROPHILS % (AUTO) 63 % (42-75); PLATELET COUNT 149 10^3/uL (130-400); RED CELL DISTRIBUTION WIDTH 13.8 % (10.0-14.5); WHITE BLOOD COUNT 12.2 10^3/uL (4.3-11.0)
[2019-03-24 04:01] LABS: BUN/CREATININE RATIO 14; CALCIUM 8.4 MG/DL (8.5-10.1); CARBON DIOXIDE 21 MMOL/L (21-32); CHLORIDE 110 MMOL/L (98-107); CREATININE SERUM 0.86 MG/DL (0.60-1.30); GFR ESTIMATED > 60; GLUCOSE 164 MG/DL (70-105); MAGNESIUM 1.4 MG/DL (1.6-2.4); PHOSPHORUS 2.4 MG/DL (2.3-4.7); POTASSIUM 4.1 MMOL/L (3.6-5.0); SODIUM 139 MMOL/L (135-145)
[2019-03-24] MEDS: NS IV 1000 ML 1,000 ML IV SCH ×3 (04:10→08:13)
[2019-03-24] MEDS: MAGNESIUM 1 GM/100 ML IVPB 100 ML IV SCH ×2 (04:12→04:15)
[2019-03-24] MEDS: VASOPRESSIN INJECTION 20 UNIT in NORMAL SALINE 100 ML IV SCH (04:46)
[2019-03-24] MEDS: inSUlin ASPART (NovoLOG) 1 UNIT/0.01 ML (CHARGE PER UNIT) SC SCH ×4 (05:33→20:49)
[2019-03-24] MEDS: CEFEPIME 1,000 MG/SWFI 10 ML IV PUSH IV SCH ×8 (05:35→23:34)
[2019-03-24] MEDS ORDERED: POTASSIUM CL 10MEQ/50ML IVPB 50 ML IV SCH (06:00)
[2019-03-24] MEDS ORDERED: MAGNESIUM 1 GM/100 ML IVPB 100 ML IV SCH (06:00)
[2019-03-24] MEDS ORDERED: KCL 20 MEQ TAB (K-DUR) PO SCH (06:00)
--- NOTE | 2019-03-24 08:09 | Progress Note ---
Subjective Time Seen by a Provider: 08:06 Subjective/Events-last exam Patient doing much better today. Patient's blood pressure is good. Patient not running any temperature. Chest x-ray shows pneumonia. Vital signs good. Plan to send to the medical floor today Focused Exam Lactate Level 03/23/19 08:41: Lactic Acid Level 1.48 Objective Exam Vital Signs Date Time Temp Pulse Resp B/P (MAP) Pulse Ox O2 Delivery O2 Flow Rate FiO2 03/24/19 07:52 94 Room Air 03/24/19 07:00 62 03/24/19 06:00 62 12 125/57 (79) 94 Room Air 03/24/19 05:00 64 10 127/58 (81) 96 Room Air 03/24/19 04:00 61 14 132/70 (90) 88 Room Air 03/24/19 03:30 36.1 03/24/19 03:30 97 Room Air 03/24/19 03:00 59 12 146/66 (92) 92 Room Air 03/24/19 02:00 65 13 112/59 (76) 94 Room Air 03/24/19 01:31 97 Room Air 03/24/19 01:00 60 6 132/62 (85) 98 Room Air 03/24/19 00:42 60 03/24/19 00:00 60 7 129/62 (84) 98 Room Air 03/23/19 23:55 36.5 03/23/19 23:38 97 Room Air 03/23/19 23:00 67 11 146/67 (93) 96 Room Air 03/23/19 22:00 65 9 117/57 (77) 95 Room Air 03/23/19 21:23 95 Room Air 03/23/19 21:00 70 11 122/53 (76) 98 Room Air 03/23/19 20:00 37.0 03/23/19 20:00 97 Room Air 03/23/19 20:00 67 10 134/66 (88) 96 Room Air 03/23/19 19:00 64 7 126/50 (75) 96 Room Air 03/23/19 18:50 61 03/23/19 18:26 97 Nasal Cannula 2.00 03/23/19 18:00 58 10 117/61 (79) 97 Room Air 03/23/19 17:00 77 9 134/55 (81) 94 Room Air 03/23/19 16:00 97 Room Air 0.00 03/23/19 16:00 79 9 112/73 (86) 96 Room Air 03/23/19 15:50 36.7 93 95 03/23/19 15:45 37.2 03/23/19 15:00 93 12 104/51 (68) 95 Room Air 03/23/19 14:00 94 14 125/77 (93) 95 Room Air 03/23/19 13:49 94 03/23/19 13:34 94 Room Air 03/23/19 13:30 97 15 152/72 (98) 93 Room Air 03/23/19 13:06 105 16 86/59 95 Nasal Cannula 2.00 03/23/19 09:30 99 Nasal Cannula 1.50 03/23/19 08:53 95 Nasal Cannula 2.00 03/23/19 08:53 36.7 130 20 91/57 (68) 95 Nasal Cannula 2.00 I & O 03/24/19 07:00 Intake Total 4910 ml Output Total 2300 ml Balance 2610 ml Capillary Refill : Less Than 3 Seconds General Appearance: No Apparent Distress, WD/WN HEENT: Normal ENT Inspection Neck: Normal Inspection Respiratory: No Accessory Muscle Use, No Respiratory Distress, Decreased Breath Sounds Cardiovascular: Regular Rate, Rhythm, No Murmur Gastrointestinal: non tender, soft Results Lab Laboratory Tests 03/23/19 08:41 03/24/19 03:24 Laboratory Tests 03/23/19 08:41: White Blood Count 12.2H, Red Blood Count 4.15L, Hemoglobin 12.1L, Hematocrit 35L , Mean Corpuscular Volume 84, Mean Corpuscular Hemoglobin 29, Mean Corpuscular Hemoglobin Concent 35, Red Cell Distribution Width 13.9, Platelet Count 165, Mean Platelet Volume 11.5H, Neutrophils (%) (Auto) 73, Lymphocytes (%) (Auto) 4L , Monocytes (%) (Auto) 23H, Eosinophils (%) (Auto) 0, Basophils (%) (Auto) 0, N eutrophils # (Auto) 8.9H, Lymphocytes # (Auto) 0.5L, Monocytes # (Auto) 2.8H, Eosinophils # (Auto) 0.0, Basophils # (Auto) 0.0, Neutrophils % (Manual) 62, Lymphocytes % (Manual) 3, Monocytes % (Manual) 18, Eosinophils % (Manual) 0, Basophils % (Manual) 0, Band Neutrophils 17, Blood Morphology Comment NORMAL, Prothrombin Time 14.6, INR Comment 1.1, Activated Partial Thromboplast Time 33, Sodium Level 137, Potassium Level 4.9, Chloride Level 102, Carbon Dioxide Level 23, Anion Gap 12, Blood Urea Nitrogen 17, Creatinine 1.06, Estimat Glomerular Filtration Rate > 60, BUN/Creatinine Ratio 16, Glucose Level 126H, Lactic Acid Level 1.48, Calcium Level 9.7, Corrected Calcium 9.6, Total Bilirubin 0.6, Aspartate Amino Transf (AST/SGOT) 11, Alanine Aminotransferase (ALT/SGPT) 9, Alkaline Phosphatase 54, Total Protein 6.9, Albumin 4.1 03/23/19 09:32: Blood Gas Puncture Site RT RAD, Blood Gas Patient Temperature 98.0, Arterial Blood pH 7.40, Arterial Blood Partial Pressure CO2 36, Arterial Blood Partial Pressure O2 91, Arterial Blood HCO3 22L, Arterial Blood Total CO2 23.3, Arterial Blood Oxygen Saturation 97, Arterial Blood Base Excess -2.0, Solis Test YES-POS, Blood Gas Ventilator Setting NO, Blood Gas Inspired Oxygen 1.5 L 03/23/19 10:31: Urine Color YELLOW, Urine Clarity CLEAR, Urine pH 6.0, Urine Specific [place] 1.025H, Urine Protein NEGATIVE, Urine Glucose (UA) NEGATIVE, Urine Ketones 1+H, Urine Nitrite NEGATIVE, Urine Bilirubin NEGATIVE, Urine Urobilinogen 1.0, Urine Leukocyte Esterase NEGATIVE, Urine RBC (Auto) NEGATIVE, Urine RBC NONE, Urine WBC NONE, Urine Squamous Epithelial Cells RARE, Urine Crystals NONE, Urine Bacteria NEGATIVE, Urine Casts NONE, Urine Mucus NEGATIVE, Urine Culture Indicat ed CULTURE PENDING 03/23/19 15:44: Glucometer 161H 03/23/19 20:06: Glucometer 238H 03/24/19 03:24: White Blood Count 12.2H, Red Blood Count 3.66L, Hemoglobin 10.4L, Hematocrit 31L , Mean Corpuscular Volume 86, Mean Corpuscular Hemoglobin 28, Mean Corpuscular Hemoglobin Concent 33, Red Cell Distribution Width 13.8, Platelet Count 149, Mean Platelet Volume 11.5H, Neutrophils (%) (Auto) 63, Lymphocytes (%) (Auto) 9L , Monocytes (%) (Auto) 27H, Eosinophils (%) (Auto) 0, Basophils (%) (Auto) 0, Neutrophils # (Auto) 7.7, Lymphocytes # (Auto) 1.1, Monocytes # (Auto) 3.3H, Eosinophils # (Auto) 0.0, Basophils # (Auto) 0.0, Sodium Level 139, Potassium Level 4.1, Chloride Level 110H, Carbon Dioxide Level 21, Anion Gap 8, Blood Urea Nitrogen 12, Creatinine 0.86, Estimat Glomerular Filtration Rate > 60, BUN/Creatinine Ratio 14, Glucose Level 164H, Calcium Level 8.4L, Phosphorus Level 2.4, Magnesium Level 1.4L 03/24/19 05:31: Glucometer 180H Microbiology 03/23/19 Influenza Types A,B Antigen (BRANDON) - Final, Complete Assessment/Plan Assessment/Plan Assess & Plan/Chief Complaint Hypotension resolved. Sepsis. Pneumonia. Dementia. Coronary artery disease. Diabetes. Clinical Quality Measures Admission Status Admission Dx Pneumonia. Hypotension. Coronary artery disease. Pacemaker. Sepsis. Confusion DVT/VTE Risk/Contraindication: Risk Factor Score Per Nursin RFS Level Per Nursing on Admit: 4+=Very High Contraindications-Pharm: Other *list below* GISELL RATLIFF DO Mar 24, 2019 08:09
[2019-03-24] MEDS: ASPIRIN E.C. 81 MG (ECOTRIN) TAB PO SCH (08:12)
[2019-03-24] MEDS: CARVEDILOL 6.25 MG (COREG) TAB PO SCH ×2 (08:12→20:10)
[2019-03-24] MEDS: CLOPIDOGREL 75 MG (PLAVIX) TABLET PO SCH (08:12)
[2019-03-24] MEDS: lisINopril 5 MG (PRINIVIL) TABLET PO SCH (08:12)
[2019-03-24] MEDS: DOCUSATE SODIUM 100 MG (COLACE) CAP PO SCH ×2 (08:12→20:11)
[2019-03-24] MEDS: MEMANTINE 10 MG (NAMENDA) TABLET PO SCH ×2 (08:12→20:10)
[2019-03-24] MEDS: risperiDONE 1 MG (RisperDAL) TAB PO SCH (08:13)
[2019-03-24] MEDS: PANTOPRAZOLE 40 MG (PROTONIX) TAB PO SCH (08:13)
[2019-03-24] MEDS ORDERED: risperiDONE 1 MG (RisperDAL) TAB PO SCH (09:00)
[2019-03-24] MEDS ORDERED: ASPIRIN 81 MG CHEW (CHILDREN'S ASA) PO SCH (09:00)
[2019-03-24] MEDS ORDERED: PANTOPRAZOLE 40 MG (PROTONIX) TAB PO SCH (09:00)
[2019-03-24] MEDS ORDERED: CLOPIDOGREL 75 MG (PLAVIX) TABLET PO SCH (09:00)
--- NOTE | 2019-03-24 09:39 | Diagnostic Imaging Report ---
Clinical indication: Patient with pneumonia, septic shock. Exam: Portable chest x-ray upright view. Comparisons: Chest x-ray dated 03/23/2019. Findings: Right IJ central line seen with tip in the midsuperior vena cava. Cardiac pacemaker seen overlying the left chest with 2 leads projecting over the heart. Fractured sternotomy wires are again seen. Pulmonary vasculature and cardiac silhouette is within normal limits. There is improved aeration of the left midlung field with residual small infiltrates remaining. There is a stable nodular area measuring 4 mm overlying the right midlung field which may represent a calcified granuloma. Remainder of this exam is stable. IMPRESSION: 1: There is improved aeration left midlung field with residual small infiltrates remaining. 2: The remainder of the exam is stable. Dictated by: Dictated on workstation # [id number]
--- NOTE | 2019-03-24 10:58 | NUR ---
OK TO TRANSFER PT TO [address]TH FLO[address] TODAY PER DR RATLIFF.
[2019-03-24] MEDS ORDERED: TROUGH ORDER-PHARMACY XX ONE (11:00)
[2019-03-24] MEDS: VANCOMYCIN 1500 MG/NS 500 ML IVPB IV SCH ×4 (11:46→23:34)
--- NOTE | 2019-03-24 12:24 | NUR ---
CM/SS: Visited with pt and family about discharge plan per consult Plan: Pt will return to [facility] ([phone]) when determined. They are ok to take pt back Summary: Pt has some confusion. Sons and granddaughter at the bedside. They report that pt was not doing too good on yesterday, however he is better today. They would like for pt to return to [facility] when able. [facility] and [facility] for [facility] to return there when ready.
--- NOTE | 2019-03-24 13:30 | NUR ---
PT TRANSFERRED TO ROOM 406 VIA W/ STAFF/PERSONAL BELONGINGS. REPORT GIVEN TO MANA GOODE, NO QUESTIONS/CONCERNS VOICED.
--- NOTE | 2019-03-24 13:38 | NUR ---
Patient in room 406, with belongings from ICU. Patient oriented to room and call light. Report received from Deneen GOODE, will assume care of patient at this time.
--- NOTE | 2019-03-24 13:44 | NUR ---
PTD VANCOMYCIN LABS: SCr 0.86, CrCl 74.7 , VANCOMYCIN LEVEL 13 03/24 @1100 PRIOR TO THIRD DOSE PLAN: CONTINUE CURRENT DOSE OF VANCOMYCIN, CONTINUE TO MONITOR RENAL FUNCTION AND ADJUST DOSE IF RENAL FUNCTION CHANGES
[2019-03-24] MEDS: SIMvastatin 40 MG (ZOCOR) TAB PO SCH (20:11)
[2019-03-24] MEDS: DONEPEZIL 5 MG (ARICEPT) TAB PO SCH (20:11)
[2019-03-25] VITALS (7 sets, daily range): BP systolic 125–164; BP diastolic 60–74
[2019-03-25] MEDS: RT-ALBUTEROL/IPRATROPIUM 3 ML (DUONEB) VIAL INH SCH ×6 (01:55→22:20)
[2019-03-25] MEDS: NS IV 1000 ML 1,000 ML IV SCH ×2 (03:55→20:30)
[2019-03-25 04:03] LABS: BASOPHILS % (AUTO) 0 % (0-10); EOSINOPHILS % (AUTO) 0 % (0-10); HEMATOCRIT 30 % (40-54); HEMOGLOBIN 9.8 G/DL (13.3-17.7); LYMPHOCYTES # (AUTO) 1.2 X 10^3 (1.0-4.0); LYMPHOCYTES % (AUTO) 17 % (12-44); MEAN CORPUSCULAR HEMOGLOBIN 28 PG (25-34); MEAN CORPUSCULAR HGB CONC 33 G/DL (32-36); MEAN CORPUSCULAR VOLUME 86 FL (80-99); MEAN PLATELET VOLUME 10.8 FL (7.4-10.4); MONOCYTES # (AUTO) 1.9 X 10^3 (0.0-1.0); MONOCYTES % (AUTO) 29 % (0-12); NEUTROPHILS # (AUTO) 3.6 X 10^3 (1.8-7.8); NEUTROPHILS % (AUTO) 54 % (42-75); PLATELET COUNT 159 10^3/uL (130-400); WHITE BLOOD COUNT 6.7 10^3/uL (4.3-11.0)
[2019-03-25 04:27] LABS: BUN/CREATININE RATIO 12; CALCIUM 8.4 MG/DL (8.5-10.1); CARBON DIOXIDE 21 MMOL/L (21-32); CHLORIDE 111 MMOL/L (98-107); CREATININE SERUM 0.84 MG/DL (0.60-1.30); GFR ESTIMATED > 60; GLUCOSE 101 MG/DL (70-105); POTASSIUM 3.6 MMOL/L (3.6-5.0); SODIUM 141 MMOL/L (135-145)
[2019-03-25] MEDS: inSUlin ASPART (NovoLOG) 1 UNIT/0.01 ML (CHARGE PER UNIT) SC SCH ×4 (04:33→22:39)
[2019-03-25] MEDS: CEFEPIME 1,000 MG/SWFI 10 ML IV PUSH IV SCH ×2 (05:13)
--- NOTE | 2019-03-25 07:26 | Diagnostic Imaging Report ---
Indication: Dyspnea, follow-up pneumonia. Comparison: 03/24/2019. Discussion: Single portable upright view of the chest was obtained. Persistent low lung volumes. Linear opacities are now noted within the left midlung, likely new atelectasis. Previous infiltrate is otherwise slightly decreased in this region. Elevated right hemidiaphragm. No pleural fluid or pneumothorax. Median sternotomy is stable with multiple fractured wires. Interval removal of the right IJ line. Left-sided pacemaker stable. Impression: 1. Waxing and waning opacities within the left midlung as described. Dictated by: Dictated on workstation # [id number]
[2019-03-25] MEDS: ASPIRIN E.C. 81 MG (ECOTRIN) TAB PO SCH (07:54)
[2019-03-25] MEDS: CLOPIDOGREL 75 MG (PLAVIX) TABLET PO SCH (07:54)
[2019-03-25] MEDS: MEMANTINE 10 MG (NAMENDA) TABLET PO SCH ×2 (07:54→22:37)
[2019-03-25] MEDS: lisINopril 5 MG (PRINIVIL) TABLET PO SCH (07:54)
[2019-03-25] MEDS: DOCUSATE SODIUM 100 MG (COLACE) CAP PO SCH ×2 (07:54→22:38)
[2019-03-25] MEDS: CARVEDILOL 6.25 MG (COREG) TAB PO SCH ×2 (07:54→22:36)
[2019-03-25] MEDS: PANTOPRAZOLE 40 MG (PROTONIX) TAB PO SCH (07:55)
[2019-03-25] MEDS: risperiDONE 1 MG (RisperDAL) TAB PO SCH (07:55)
--- NOTE | 2019-03-25 13:17 | Progress Note - Hospitalist ---
Subjective HPI/CC On Admission Date Seen by Provider: Mar 25, 2019 Time Seen by Provider: 09:30 Subjective/Events-last exam Patient ripped out his central line left IJ and cannot get IV restarted and multiple nurses have tried Patient stable and no fever and feels good so will start PO abx to cover Vanc and Cefepime as ordered IV No issues otherwise No pain is reported Noted confusion No falls but high risk Review of Systems General: Fatigue Neurological: Confusion Focused Exam Lactate Level 03/23/19 08:41: Lactic Acid Level 1.48 Objective Exam Vital Signs Vital Signs Date Time Temp Pulse Resp B/P (MAP) Pulse Ox O2 Delivery O2 Flow Rate FiO2 03/25/19 14:33 95 Room Air 03/25/19 11:30 36.4 65 20 158/74 (102) 03/25/19 08:00 2.00 Capillary Refill : NONELess Than 3 Seconds General Appearance: No Apparent Distress, WD/WN, Chronically ill Respiratory: Lungs Clear Cardiovascular: Regular Rate, Rhythm Neurologic/Psychiatric: Alert, Oriented x3, No Motor/Sensory Deficits, Normal Mood/Affect Results/Procedures Lab Laboratory Tests 03/25/19 03:50 Patient resulted labs reviewed. Assessment/Plan Assessment and Plan Assess & Plan/Chief Complaint Assessment: Septic shock PNA Confusion Dementia Debility Plan: PO abx since pulled CL out and no one can start IV and he appears to be doing well Monitor confusion Diagnosis/Problems Diagnosis/Problems (1) Septic shock Status: Acute (2) Hypoxia Status: Acute (3) Dementia with behavioral disturbance Status: Acute Clinical Quality Measures DVT/VTE Risk/Contraindication: Risk Factor Score Per Nursin RFS Level Per Nursing on Admit: 4+=Very High Contraindications-Pharm: Other *list below* CHERRIE SANCHEZ DO Mar 25, 2019 13:17
[2019-03-25] MEDS ORDERED: LINEZOLID (ZYVOX) 600 MG TAB PO SCH (21:00)
[2019-03-25] MEDS: CEFDINIR 300 MG (OMNICEF) CAP PO SCH (22:37)
[2019-03-25] MEDS: SIMvastatin 40 MG (ZOCOR) TAB PO SCH (22:37)
[2019-03-25] MEDS: DONEPEZIL 5 MG (ARICEPT) TAB PO SCH (22:38)
[2019-03-26] MEDS: RT-ALBUTEROL/IPRATROPIUM 3 ML (DUONEB) VIAL INH SCH ×3 (02:03→10:10)
[2019-03-26 03:05] VITALS: BP 152/64
[2019-03-26 05:54] LABS: BASOPHILS % (AUTO) 0 % (0-10); EOSINOPHILS % (AUTO) 0 % (0-10); HEMATOCRIT 30 % (40-54); HEMOGLOBIN 9.9 G/DL (13.3-17.7); LYMPHOCYTES # (AUTO) 1.3 X 10^3 (1.0-4.0); LYMPHOCYTES % (AUTO) 19 % (12-44); MEAN CORPUSCULAR HEMOGLOBIN 28 PG (25-34); MEAN CORPUSCULAR HGB CONC 34 G/DL (32-36); MEAN CORPUSCULAR VOLUME 84 FL (80-99); MEAN PLATELET VOLUME 11.8 FL (7.4-10.4); MONOCYTES # (AUTO) 1.9 X 10^3 (0.0-1.0); MONOCYTES % (AUTO) 27 % (0-12); NEUTROPHILS # (AUTO) 3.6 X 10^3 (1.8-7.8); NEUTROPHILS % (AUTO) 53 % (42-75); PLATELET COUNT 166 10^3/uL (130-400); RED CELL DISTRIBUTION WIDTH 13.7 % (10.0-14.5); WHITE BLOOD COUNT 6.8 10^3/uL (4.3-11.0)
[2019-03-26] MEDS: inSUlin ASPART (NovoLOG) 1 UNIT/0.01 ML (CHARGE PER UNIT) SC SCH (06:00)
[2019-03-26 06:17] LABS: BUN/CREATININE RATIO 9; CALCIUM 8.7 MG/DL (8.5-10.1); CARBON DIOXIDE 20 MMOL/L (21-32); CHLORIDE 107 MMOL/L (98-107); CREATININE SERUM 0.96 MG/DL (0.60-1.30); GFR ESTIMATED > 60; GLUCOSE 165 MG/DL (70-105); POTASSIUM 3.7 MMOL/L (3.6-5.0); SODIUM 137 MMOL/L (135-145)
[2019-03-26 08:00] VITALS: BP 151/67
--- NOTE | 2019-03-26 08:25 | Progress Note ---
Subjective Time Seen by a Provider: 08:22 Subjective/Events-last exam Patient stable and doing good. Patient getting oral antibiotic. Patient pulled out all IVs. To discharge patient today Focused Exam Lactate Level 03/23/19 08:41: Lactic Acid Level 1.48 Objective Exam Vital Signs Date Time Temp Pulse Resp B/P (MAP) Pulse Ox O2 Delivery O2 Flow Rate FiO2 03/26/19 07:33 94 Room Air 03/26/19 03:05 37.0 68 20 152/64 (93) 96 Room Air 03/26/19 02:02 95 Room Air 03/25/19 23:17 37.1 68 18 154/70 (98) 96 Room Air 03/25/19 22:19 95 Room Air 03/25/19 20:15 96 Room Air 2.00 03/25/19 19:55 96 Room Air 03/25/19 19:40 36.9 69 18 142/61 (88) 97 Room Air 03/25/19 16:34 36.6 66 18 125/70 (88) 96 Room Air 03/25/19 14:33 95 Room Air 03/25/19 11:30 36.4 65 20 158/74 (102) 98 Room Air 03/25/19 10:12 96 Room Air 03/25/19 08:30 36.4 68 20 164/67 (99) 95 Room Air I & O 03/26/19 07:00 Intake Total 1150 ml Balance 1150 ml Capillary Refill : NONELess Than 3 Seconds General Appearance: No Apparent Distress HEENT: Normal ENT Inspection Neck: Normal Inspection Respiratory: Lungs Clear, No Accessory Muscle Use, No Respiratory Distress Cardiovascular: Regular Rate, Rhythm, No Murmur Gastrointestinal: non tender, soft Results Lab Laboratory Tests 03/26/19 04:27 Laboratory Tests 03/25/19 10:57: Glucometer 225H 03/25/19 16:38: Glucometer 382H 03/25/19 20:48: Glucometer 225H 03/26/19 04:27: White Blood Count 6.8, Red Blood Count 3.51L, Hemoglobin 9.9L, Hematocrit 30L, Mean Corpuscular Volume 84, Mean Corpuscular Hemoglobin 28, Mean Corpuscular Hemoglobin Concent 34, Red Cell Distribution Width 13.7, Platelet Count 166, Mean Platelet Volume 11.8H, Neutrophils (%) (Auto) 53, Lymphocytes (%) (Auto) 19, Monocytes (%) (Auto) 27H, Eosinophils (%) (Auto) 0, Basophils (%) (Auto) 0, Neutrophils # (Auto) 3.6, Lymphocytes # (Auto) 1.3, Monocytes # (Auto) 1.9H, Eosinophils # (Auto) 0.0, Basophils # (Auto) 0.0, Sodium Level 137, Potassium L evel 3.7, Chloride Level 107, Carbon Dioxide Level 20L, Anion Gap 10, Blood Urea Nitrogen 9, Creatinine 0.96, Estimat Glomerular Filtration Rate > 60, BUN/Creatinine Ratio 9, Glucose Level 165H, Calcium Level 8.7 03/26/19 05:41: Glucometer 169H Microbiology 03/23/19 MRSA Screen - Final, Complete MRSA not isolated 03/23/19 Urine Culture - Final, Complete NO GROWTH 03/23/19 Blood Culture - Preliminary, Resulted No growth Assessment/Plan Assessment/Plan Assess & Plan/Chief Complaint Hypotension resolved. Sepsis. Pneumonia. Dementia. Coronary artery disease. Diabetes.. . 03/26/19. Hypotension. Sepsis. Pneumonia. Dementia. Coronary artery disease. Diabetes Patient doing good and will be discharged today and followed up in the office Clinical Quality Measures Admission Status Admission Dx Pneumonia. Hypotension. Coronary artery disease. Pacemaker. Sepsis. Confusion DVT/VTE Risk/Contraindication: Risk Factor Score Per Nursin RFS Level Per Nursing on Admit: 4+=Very High Contraindications-Pharm: Other *list below* GISELL RATLIFF DO Mar 26, 2019 08:25
[2019-03-26] MEDS ORDERED: CEFD300C3 PO (08:30)
[2019-03-26] MEDS ORDERED: IPRA3AMP31 INH (08:32)
[2019-03-26] MEDS: lisINopril 5 MG (PRINIVIL) TABLET PO SCH (09:01)
[2019-03-26] MEDS: ASPIRIN E.C. 81 MG (ECOTRIN) TAB PO SCH (09:01)
[2019-03-26] MEDS: CEFDINIR 300 MG (OMNICEF) CAP PO SCH (09:01)
[2019-03-26] MEDS: PANTOPRAZOLE 40 MG (PROTONIX) TAB PO SCH (09:01)
[2019-03-26] MEDS: DOCUSATE SODIUM 100 MG (COLACE) CAP PO SCH (09:02)
[2019-03-26] MEDS: risperiDONE 1 MG (RisperDAL) TAB PO SCH (09:02)
[2019-03-26] MEDS: CARVEDILOL 6.25 MG (COREG) TAB PO SCH (09:02)
[2019-03-26] MEDS: CLOPIDOGREL 75 MG (PLAVIX) TABLET PO SCH (09:02)
[2019-03-26] MEDS: MEMANTINE 10 MG (NAMENDA) TABLET PO SCH (09:02)
--- NOTE | 2019-03-26 09:15 | NUR ---
CM FINALIZED DISCHARGE PLANNING: Patient returning to [facility] on resident status at this time. This patient doctors with Dr. Guevara et historically [facility] for their facility. Checked with primary care nurse et patient et he needs clothing for transport but no other equipment needs. F/U with [facility] staff Rodolfo et he indicates that they would bring clothing et pick the patient up between 11a.m. et noon. Primary care nurse updated. No further interventions noted at this time.
--- NOTE | 2019-03-26 11:20 | NUR ---
DC'D PER WC TO PHR. REPORT CALLED TO [facility]. PACKET SENT WITH PT.
--- NOTE | 2019-03-26 14:09 | NUR ---
Received dietary consult for MST score. Note pt has been discharged at this time. Karena Newsome, MS, RD, LD
--- NOTE | 2019-03-27 07:45 | Discharge Summary ---
Diagnosis/Chief Complaint Date of Admission Mar 23, 2019 at 12:08 Date of Discharge Mar 26, 2019 at 11:20 Discharge Time: 07:42 Discharge Diagnosis . Hypotension. Sepsis. Confusion. Febrile. Diabetes. Pneumonia. Pacemaker. GERD. Pneumonia in left midlung. Hypoxia. Coronary artery disease Reason Hospital Visit Patient is a resident from the long-term. I received a call from the nurse that the patient is confused and running an elevated temperature of 101. Patient sent out to the emergency room and chest x-ray shows pneumonia. Patient's blood pressure was low was put on Levophed. Patient has history of diabetes, pacemaker, GERD, anxiety and dementia. Patient transferred to ICU. Patient's on heart medicines and Plavix and aspirin Discharge Summary Discharge Physical Examination Allergies: Coded Allergies: No Known Drug Allergies (Unverified , 10/27/16) Vitals & I&Os Vital Signs Date Time Temp Pulse Resp B/P (MAP) Pulse Ox O2 Delivery O2 Flow Rate FiO2 03/26/19 10:11 93 Room Air 03/26/19 08:00 36.6 70 18 151/67 (95) 03/25/19 20:15 2.00 Hospital Course Was the Problem List Reviewed?: Yes Patient in hospital improved. Patient without HIS IVs. Patient doing good on oral antibiotics. Chest x-ray pneumonia improving. Patient transferred back to long-term Labs (last 24 hrs) Laboratory Tests 03/23/19 08:41: White Blood Count 12.2H, Red Blood Count 4.15L, Hemoglobin 12.1L, Hematocrit 35L , Mean Corpuscular Volume 84, Mean Corpuscular Hemoglobin 29, Mean Corpuscular Hemoglobin Concent 35, Red Cell Distribution Width 13.9, Platelet Count 165, Mean Platelet Volume 11.5H, Neutrophils (%) (Auto) 73, Lymphocytes (%) (Auto) 4L , Monocytes (%) (Auto) 23H, Eosinophils (%) (Auto) 0, Basophils (%) (Auto) 0, Neutrophils # (Auto) 8.9H, Lymphocytes # (Auto) 0.5L, Monocytes # (Auto) 2.8H, Eosinophils # (Auto) 0.0, Basophils # (Auto) 0.0, Neutrophils % (Manual) 62, Lymphocytes % (Manual) 3, Monocytes % (Manual) 18, Eosinophils % (Manual) 0, Basophils % (Manual) 0, Band Neutrophils 17, Blood Morphology Comment NORMAL, Pr othrombin Time 14.6, INR Comment 1.1, Activated Partial Thromboplast Time 33, Sodium Level 137, Potassium Level 4.9, Chloride Level 102, Carbon Dioxide Level 23, Anion Gap 12, Blood Urea Nitrogen 17, Creatinine 1.06, Estimat Glomerular Filtration Rate > 60, BUN/Creatinine Ratio 16, Glucose Level 126H, Lactic Acid Level 1.48, Calcium Level 9.7, Corrected Calcium 9.6, Total Bilirubin 0.6, Aspartate Amino Transf (AST/SGOT) 11, Alanine Aminotransferase (ALT/SGPT) 9, Alkaline Phosphatase 54, Total Protein 6.9, Albumin 4.1 03/23/19 09:32: Blood Gas Puncture Site RT RAD, Blood Gas Patient Temperature 98.0, Arterial Blood pH 7.40, Arterial Blood Partial Pressure CO2 36, Arterial Blood Partial Pressure O2 91, Arterial Blood HCO3 22L, Arterial Blood Total CO2 23.3, Arterial Blood Oxygen Saturation 97, Arterial Blood Base Excess -2.0, [employer] Test YES-POS, Blood Gas Ventilator Setting NO, Blood Gas Inspired Oxygen 1.5 L 03/23/19 10:31: Urine Color YELLOW, Urine Clarity CLEAR, Urine pH 6.0, Urine Specific [place] 1.025H, Urine Protein NEGATIVE, Urine Glucose (UA) NEGATIVE, Urine Ketones 1+H, Urine Nitrite NEGATIVE, Urine Bilirubin NEGATIVE, Urine Urobilinogen 1.0, Urine Leukocyte Esterase NEGATIVE, Urine RBC (Auto) NEGATIVE, Urine RBC NONE, Urine WBC NONE, Urine Squamous Epithelial Cells RARE, Urine Crystals NONE, Urine Bacteria NEGATIVE, Urine Casts NONE, Urine Mucus NEGATIVE, Urine Culture Indicated CULTURE PENDING 03/23/19 15:44: Glucometer 161H 03/23/19 20:06: Glucometer 238H 03/24/19 03:24: White Blood Count 12.2H, Red Blood Count 3.66L, Hemoglobin 10.4L, Hematocrit 31L , Mean Corpuscular Volume 86, Mean Corpuscular Hemoglobin 28, Mean Corpuscular Hemoglobin Concent 33, Red Cell Distribution Width 13.8, Platelet Count 149, Mean Platelet Volume 11.5H, Neutrophils (%) (Auto) 63, Lymphocytes (%) (Auto) 9L , Monocytes (%) (Auto) 27H, Eosinophils (%) (Auto) 0, Basophils (%) (Auto) 0, Neutrophils # (Auto) 7.7, Lymphocytes # (Auto) 1.1, Monocytes # (Auto) 3.3H, Eosinophils # (Auto) 0.0, Basophils # (Auto) 0.0, Sodium Level 139, Potassium Level 4.1, Chloride Level 110H, Carbon Dioxide Level 21, Anion Gap 8, Blood Urea Nitrogen 12, Creatinine 0.86, Estimat Glomerular Filtration Rate > 60, BUN/Creatinine Ratio 14, Glucose Level 164H, Calcium Level 8.4L, Phosphorus Level 2.4, Magnesium Level 1.4L 03/24/19 05:31: Glucometer 180H 03/24/19 11:05: Glucometer 214H, Vancomycin Level Trough 13.0 03/24/19 15:48: Glucometer 214H 03/24/19 20:30: Glucometer 225H 03/25/19 03:50: White Blood Count 6.7, Red Blood Count 3.46L, Hemoglobin 9.8L, Hematocrit 30L, Mean Corpuscular Volume 86, Mean Corpuscular Hemoglobin 28, Mean Corpuscular Hemoglobin Concent 33, Red Cell Distribution Width 14.0, Platelet Count 159, Mean Platelet Volume 10.8H, Neutrophils (%) (Auto) 54, Lymphocytes (%) (Auto) 17, Monocytes (%) (Auto) 29H, Eosinophils (%) (Auto) 0, Basophils (%) (Auto) 0, Neutrophils # (Auto) 3.6, Lymphocytes # (Auto) 1.2, Monocytes # (Auto) 1.9H, Eosinophils # (Auto) 0.0, Basophils # (Auto) 0.0, Sodium Level 141, Potassium Level 3.6, Chloride Level 111H, Carbon Dioxide Level 21, Anion Gap 9, Blood Urea Nitrogen 10, Creatinine 0.84, Estimat Glomerular Filtration Rate > 60, BUN/Creatinine Ratio 12, Glucose Level 101, Calcium Level 8.4L 03/25/19 10:57: Glucometer 225H 03/25/19 16:38: Glucometer 382H 03/25/19 20:48: Glucometer 225H 03/26/19 04:27: White Blood Count 6.8, Red Blood Count 3.51L, Hemoglobin 9.9L, Hematocrit 30L, Mean Corpuscular Volume 84, Mean Corpuscular Hemoglobin 28, Mean Corpuscular Hemoglobin Concent 34, Red Cell Distribution Width 13.7, Platelet Count 166, Mean Platelet Volume 11.8H, Neutrophils (%) (Auto) 53, Lymphocytes (%) (Auto) 19, Monocytes (%) (Auto) 27H, Eosinophils (%) (Auto) 0, Basophils (%) (Auto) 0, Neutrophils # (Auto) 3.6, Lymphocytes # (Auto) 1.3, Monocytes # (Auto) 1.9H, Eosinophils # (Auto) 0.0, Basophils # (Auto) 0.0, Sodium Level 137, Potassium Level 3.7, Chloride Level 107, Carbon Dioxide Level 20L, Anion Gap 10, Blood Urea Nitrogen 9, Creatinine 0.96, Estimat Glomerular Filtration Rate > 60, BUN/Creatinine Ratio 9, Glucose Level 165H, Calcium Level 8.7 03/26/19 05:41: Glucometer 169H Microbiology 03/23/19 MRSA Screen - Final, Complete MRSA not isolated 03/23/19 Urine Culture - Final, Complete NO GROWTH 03/23/19 Blood Culture - Preliminary, Resulted No growth Laboratory Tests 03/23/19 08:41 03/24/19 03:24 03/25/19 03:50 03/26/19 04:27 Pending Labs Microbiology Date/Time Source Procedure Growth Status 03/23/19 15:00 Nasal MRSA Screen - Final MRSA not isolated Complete 03/23/19 10:31 Urine Straight Cath, In/Out Urine Culture - Final NO GROWTH Complete 03/23/19 09:12 Peripheral Lt Hand Blood Culture - Preliminary No growth Resulted 03/23/19 08:41 Nasopharynx Influenza Types A,B Antigen (BRANDON) - Final Complete 03/23/19 08:41 Peripheral Rt Ac Blood Culture - Preliminary No growth Resulted Laboratory Tests 03/23/19 08:41: White Blood Count 12.2, Red Blood Count 4.15, Hemoglobin 12.1, Hematocrit 35, Mean Corpuscular Volume 84, Mean Corpuscular Hemoglobin 29, Mean Corpuscular Hemoglobin Concent 35, Red Cell Distribution Width 13.9, Platelet Count 165, Mean Platelet Volume 11.5, Neutrophils (%) (Auto) 73, Lymphocytes (%) (Auto) 4, Monocytes (%) (Auto) 23, Eosinophils (%) (Auto) 0, Basophils (%) (Auto) 0, Ne utrophils # (Auto) 8.9, Lymphocytes # (Auto) 0.5, Monocytes # (Auto) 2.8, Eosinophils # (Auto) 0.0, Basophils # (Auto) 0.0, Neutrophils % (Manual) 62, Lymphocytes % (Manual) 3, Monocytes % (Manual) 18, Eosinophils % (Manual) 0, Basophils % (Manual) 0, Band Neutrophils 17, Blood Morphology Comment NORMAL, Prothrombin Time 14.6, INR Comment 1.1, Activated Partial Thromboplast Time 33, Sodium Level 137, Potassium Level 4.9, Chloride Level 102, Carbon Dioxide Level 23, Anion Gap 12, Blood Urea Nitrogen 17, Creatinine 1.06, Estimat Glomerular Filtration Rate > 60, BUN/Creatinine Ratio 16, Glucose Level 126, Lactic Acid Level 1.48, Calcium Level 9.7, Corrected Calcium 9.6, Total Bilirubin 0.6, Asp artate Amino Transf (AST/SGOT) 11, Alanine Aminotransferase (ALT/SGPT) 9, Alkaline Phosphatase 54, Total Protein 6.9, Albumin 4.1 03/23/19 09:32: Blood Gas Puncture Site RT RAD, Blood Gas Patient Temperature 98.0, Arterial Blood pH 7.40, Arterial Blood Partial Pressure CO2 36, Arterial Blood Partial Pressure O2 91, Arterial Blood HCO3 22, Arterial Blood Total CO2 23.3, Arterial Blood Oxygen Saturation 97, Arterial Blood Base Excess -2.0, [employer] Test YES-POS, Blood Gas Ventilator Setting NO, Blood Gas Inspired Oxygen 1.5 L 03/23/19 10:31: Urine Color YELLOW, Urine Clarity CLEAR, Urine pH 6.0, Urine Specific [place] 1.025, Urine Protein NEGATIVE, Urine Glucose (UA) NEGATIVE, Urine Ketones 1+, Urine Nitrite NEGATIVE, Urine Bilirubin NEGATIVE, Urine Urobilinogen 1.0, Urine Leukocyte Esterase NEGATIVE, Urine RBC (Auto) NEGATIVE, Urine RBC NONE, Urine WBC NONE, Urine Squamous Epithelial Cells RARE, Urine Crystals NONE, Urine Bacteria NEGATIVE, Urine Casts NONE, Urine Mucus NEGATIVE, Urine Culture Indicated CULTURE PENDING 03/23/19 15:44: Glucometer 161 03/23/19 20:06: Glucometer 238 03/24/19 03:24: White Blood Count 12.2, Red Blood Count 3.66, Hemoglobin 10.4, Hematocrit 31, Mean Corpuscular Volume 86, Mean Corpuscular Hemoglobin 28, Mean Corpuscular Hemoglobin Concent 33, Red Cell Distribution Width 13.8, Platelet Count 149, Mean Platelet Volume 11.5, Neutrophils (%) (Auto) 63, Lymphocytes (%) (Auto) 9, Monocytes (%) (Auto) 27, Eosinophils (%) (Auto) 0, Basophils (%) (Auto) 0, Neutrophils # (Auto) 7.7, Lymphocytes # (Auto) 1.1, Monocytes # (Auto) 3.3, Eosinophils # (Auto) 0.0, Basophils # (Auto) 0.0, Sodium Level 139, Potassium Level 4.1, Chloride Level 110, Carbon Dioxide Level 21, Anion Gap 8, Blood Urea Nitrogen 12, Creatinine 0.86, Estimat Glomerular Filtration Rate > 60, BUN/Creatinine Ratio 14, Glucose Level 164, Calcium Level 8.4, Phosphorus Level 2.4, Magnesium Level 1.4 03/24/19 05:31: Glucometer 180 03/24/19 11:05: Glucometer 214, Vancomycin Level Trough 13.0 03/24/19 15:48: Glucometer 214 03/24/19 20:30: Glucometer 225 03/25/19 03:50: White Blood Count 6.7, Red Blood Count 3.46, Hemoglobin 9.8, Hematocrit 30, Mean Corpuscular Volume 86, Mean Corpuscular Hemoglobin 28, Mean Corpuscular Hemoglobin Concent 33, Red Cell Distribution Width 14.0, Platelet Count 159, Mean Platelet Volume 10.8, Neutrophils (%) (Auto) 54, Lymphocytes (%) (Auto) 17, Monocytes (%) (Auto) 29, Eosinophils (%) (Auto) 0, Basophils (%) (Auto) 0, Neutrophils # (Auto) 3.6, Lymphocytes # (Auto) 1.2, Monocytes # (Auto) 1.9, Eosinophils # (Auto) 0.0, Basophils # (Auto) 0.0, Sodium Level 141, Potassium Level 3.6, Chloride Level 111, Carbon Dioxide Level 21, Anion Gap 9, Blood Urea Nitrogen 10, Creatinine 0.84, Estimat Glomerular Filtration Rate > 60, BUN/Creatinine Ratio 12, Glucose Level 101, Calcium Level 8.4 03/25/19 10:57: Glucometer 225 03/25/19 16:38: Glucometer 382 03/25/19 20:48: Glucometer 225 03/26/19 04:27: White Blood Count 6.8, Red Blood Count 3.51, Hemoglobin 9.9, Hematocrit 30, Mean Corpuscular Volume 84, Mean Corpuscular Hemoglobin 28, Mean Corpuscular Hemoglobin Concent 34, Red Cell Distribution Width 13.7, Platelet Count 166, Mean Platelet Volume 11.8, Neutrophils (%) (Auto) 53, Lymphocytes (%) (Auto) 19, Monocytes (%) (Auto) 27, Eosinophils (%) (Auto) 0, Basophils (%) (Auto) 0, Neutrophils # (Auto) 3.6, Lymphocytes # (Auto) 1.3, Monocytes # (Auto) 1.9, Eosinophils # (Auto) 0.0, Basophils # (Auto) 0.0, Sodium Level 137, Potassium Level 3.7, Chloride Level 107, Carbon Dioxide Level 20, Anion Gap 10, Blood Urea Nitrogen 9, Creatinine 0.96, Estimat Glomerular Filtration Rate > 60, BUN/Creatinine Ratio 9, Glucose Level 165, Calcium Level 8.7 03/26/19 05:41: Glucometer 169 Discussion & Recommendations Patient to be seen in office next week. Patient doing much better Discharge Home Medications: Active Scripts Active Iprat-Albut 0.5-3(2.5) mg/3 ml (Ipratropium/Albuterol Sulfate) 3 Ml Ampul.neb 3 Ml INH TID Cefdinir 300 Mg Capsule 300 Mg PO BID Reported Metformin HCl 1,000 Mg Tablet 1,000 Mg PO BID Meclizine HCl 12.5 Mg Tablet 25 Mg PO TID TAKES 2 (12.5MG)TABS Gluco Burst (Dextrose) 37.5 Gm Gel..gram. 1 Packet PO EVERY 15 MINUTES PRN AFTER 3 DOSES IF NO CHANGE IN BS OR CHANGE IN PUNEET GIVE GLUCOAGON AND NOTIFY PCP Bisacodyl 10 Mg Supp.rect 10 Mg RC DAILY PRN ONLY USE IF MILK OF MAGNESIA IS NOT EFFECTIVE Carvedilol 6.25 Mg Tablet 6.25 Mg PO BID HOLD FOR CANDACE LESS THEN 100/60 AND PULSE LESS THAN 60 Donepezil HCl 5 Mg Tablet 10 Mg PO HS Ondansetron Odt (Ondansetron) 8 Mg Tab.rapdis 8 Mg PO Q8H PRN Novolin N (Insulin NPH Human Isophane) 100 Unit/1 Ml Vial 10 Unit SQ DAILY NOTIFY PCP OF BS <60 OR >400 Tramadol HCl 50 Mg Tablet 50 Mg PO BID Vitamin D3 (Cholecalciferol (Vitamin D3)) 1,000 Unit Capsule 1,000 Unit PO DAILY Simvastatin 40 Mg Tablet 40 Mg PO HS Risperidone 1 Mg Tablet 0.5 Mg PO DAILY TAKE OF A 1MG TAB TO EQUAL 0.5MG DAILY Pantoprazole Sodium 40 Mg Tablet.dr 40 Mg PO DAILY Novolog Flexpen (Insulin Aspart) 300 Units/3 Ml Solution SQ EVENING 0-59 = 0 CALL PHYSICIAN 60-200 = 0 201-250 = 3 UNITS 251-300 = 5 UNITS 301-350 = 7 UNITS 351-400 = 9 UNITS 401-999 = 9 UNITS CALL PHYSICAIN Memantine HCl 10 Mg Tablet 10 Mg PO BID Milk of Magnesia (Magnesium Hydroxide) 400 Mg/5 Ml Oral.susp 30 Ml PO DAILY PRN Lisinopril 5 Mg Tablet 5 Mg PO DAILY HOLD FOR BP LESS THAN 100/60 AND PULSE LESS THAN 60 Hydroxyzine HCl 25 Mg Tablet 25 Mg PO HS Glucagon Emergency Kit (Glucagon,Human Recombinant) 1 Mg/Kit Soln 1 Mg IJ UD PRN USE FOR GLUCOSE <60 Colace (Docusate Sodium) 100 Mg Capsule 100 Mg PO BID Clopidogrel (Clopidogrel Bisulfate) 75 Mg Tablet 75 Mg PO DAILY Aspirin EC (Aspirin) 81 Mg Tablet.dr 81 Mg PO DAILY Tylenol (Acetaminophen) 325 Mg Tablet 650 Mg PO Q4H PRN Instructions to patient/family Please see electronic discharge instructions given to patient. Clinical Quality Measures DVT/VTE Risk/Contraindication: Risk Factor Score Per Nursin RFS Level Per Nursing on Admit: 4+=Very High Contraindications-Pharm: Other *list below* GISELL RATLIFF DO Mar 27, 2019 07:45
== END 2019-03-26 11:20 | DRG 871 ==
LOC: EDUNIT# 08:36 → ER 08:37 → ICU 12:08 → 4TH 03-24 13:38
PROVIDERS: ADMIT Family Medicine; ATTEND Family Medicine
PROC: 02HV33Z Insertion of Infusion Device into Superior Vena Cava, Percutaneous Approach (ICD-10-PCS; principal; 2019-03-23)
DX: A41.9 Sepsis, unspecified organism (principal); R65.21 Severe sepsis with septic shock; J18.1 Lobar pneumonia, unspecified organism; F03.91 Unspecified dementia, unspecified severity, with behavioral disturbance; E11.9 Type 2 diabetes mellitus without complications; K21.9 Gastro-esophageal reflux disease without esophagitis; R09.02 Hypoxemia; I25.10 Atherosclerotic heart disease of native coronary artery without angina pectoris; Z66 Do not resuscitate; E78.00 Pure hypercholesterolemia, unspecified; F41.9 Anxiety disorder, unspecified; F17.210 Nicotine dependence, cigarettes, uncomplicated; Z79.84 Long term (current) use of oral hypoglycemic drugs; Z95.0 Presence of cardiac pacemaker; Z95.1 Presence of aortocoronary bypass graft
CPT/HCPCS: 36415; 71045; 80048; 80053; 80202; 81000; 82805; 82962; 83605; 83735; 84100; 85007; 85025; 85027; 85610; 85730; 87040; 87081; 87088; 87804; 94640; 94760; 96361; 96365; 96367; 96368; 96375

== ENCOUNTER 2019-11-28 13:06 | Emergency (ER) | payer MEDICARE, MEDICAID ==
[~2019-11-28] VITALS: Ht 180 cm; Wt 80.0 kg
[~2019-11-28 13:06] MED LIST changes: +BISA10SU8 RC; +CARV6.252 PO; +DEXT37.54 PO; +DONE5TAB30 PO; +IPRA3AMP31 INH; +MECL-172 PO; -MEMA10TA22 PO; +MEMA10TA57 PO; +SIMV40TA25 PO; -SIMV40TA4 PO; -TRAM50TA2 PO; -TRAZ-222 PO; +TRM50T PO; +TRZ50T PO
[2019-11-28] MEDS ORDERED: NS IV 1000 ML 1,000 ML IV ONE (13:42)
[2019-11-28] MEDS ORDERED: fentaNYL INJECTION 100 MCG/2 ML AMP IVP STA (13:45)
--- NOTE | 2019-11-28 14:04 | Diagnostic Imaging Report ---
INDICATION: Fall, right hip pain 3 views of the pelvis and right hip shows irregularity of the trabecular pattern in the subcapital region. Subcapital fracture cannot be excluded. No other fracture is evident. There is no dislocation. There are degenerative changes present. IMPRESSION: No actual fracture is seen but there is slight irregularity of the trabecular pattern and the subcapital fracture cannot be excluded. CT or MRI may be helpful for further evaluation if felt indicated. Dictated by: Dictated on workstation # [id number]
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
--- NOTE | 2019-11-28 14:30 | Diagnostic Imaging Report ---
PROCEDURE: CT head without contrast. TECHNIQUE: Multiple contiguous axial images were obtained through the brain without the use of intravenous contrast. Auto Exposure Controls were utilized during the CT exam to meet ALARA standards for radiation dose reduction. INDICATION: Fall. COMPARISON: CT head without contrast 04/29/2018. FINDINGS: Moderate generalized cerebral and cerebellar parenchymal volume loss is age appropriate. Mild leukoaraiosis. No CT evidence of territorial infarction. No intracranial hemorrhage, mass effect, hydrocephalus or extra-axial fluid collections. Osseous structures are intact. The visualized paranasal sinuses and mastoids are clear. IMPRESSION: No acute intracranial CT findings. Dictated by: Dictated on workstation # [id number]
--- NOTE | 2019-11-28 14:32 | Diagnostic Imaging Report ---
PROCEDURE: CT lumbar spine without contrast. TECHNIQUE: Multiple contiguous axial images were obtained through the lumbar spine without the use of intravenous contrast. Sagittal and coronal reformations were then performed. Auto Exposure Controls were utilized during the CT exam to meet ALARA standards for radiation dose reduction. INDICATION: Fall. Back pain. COMPARISON: None. FINDINGS: Minimal retrolisthesis of L3 on L4. Alignment is otherwise unremarkable. Vertebral body heights preserved. No acute fractures. Chronic L3 pars defects. Advanced degenerative changes in the sacroiliac joints. Postoperative findings of L4 laminectomy. Disc osteophyte complexes at L3-L4 and L5-S1 results in at least moderate spinal canal stenosis. There is moderate to severe bilateral neural foraminal narrowing at L5-S1 and on the right at L4-L5 and L3-L4. Moderate atherosclerotic calcifications. The visualized paravertebral soft tissues are otherwise unremarkable. IMPRESSION: 1. No acute CT findings in the lumbar spine. 2. Chronic bilateral L3 pars defects. 3. 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 There is also scattered high-grade neural foraminal narrowing, most severe bilaterally at L5-S1. Dictated by: Dictated on workstation # [id number]
[2019-11-28 14:37] LABS: BASOPHILS % (AUTO) 0 % (0-10); EOSINOPHILS % (AUTO) 0 % (0-10); HEMATOCRIT 38 % (40-54); LYMPHOCYTES % (AUTO) 20 % (12-44); MEAN CORPUSCULAR HEMOGLOBIN 28 PG (25-34); MEAN CORPUSCULAR HGB CONC 34 G/DL (32-36); MEAN CORPUSCULAR VOLUME 83 FL (80-99); MEAN PLATELET VOLUME 11.3 FL (7.4-10.4); MONOCYTES # (AUTO) 1.4 X 10^3 (0.0-1.0); MONOCYTES % (AUTO) 26 % (0-12); NEUTROPHILS # (AUTO) 2.8 X 10^3 (1.8-7.8); NEUTROPHILS % (AUTO) 53 % (42-75); PLATELET COUNT 233 10^3/uL (130-400); RED CELL DISTRIBUTION WIDTH 13.8 % (10.0-14.5); WHITE BLOOD COUNT 5.2 10^3/uL (4.3-11.0)
[2019-11-28 14:48] LABS: BILIRUBIN,URINE NEGATIVE (NEGATIVE); CLARITY,URINE CLEAR; COLOR,URINE YELLOW; GLUCOSE, URINE (UA) 1+ (NEGATIVE); KETONES,URINE TRACE (NEGATIVE); LEUKOCYTE ESTERASE ,URINE NEGATIVE (NEGATIVE); NITRITE,URINE NEGATIVE (NEGATIVE); PROTEIN,URINE NEGATIVE (NEGATIVE)
[2019-11-28 14:50] LABS: ALBUMIN 4.3 GM/DL (3.2-4.5); POTASSIUM 4.7 MMOL/L (3.6-5.0)
[2019-11-28 14:52] LABS: TOTAL PROTEIN 7.8 GM/DL (6.4-8.2)
[2019-11-28 14:54] LABS: BILIRUBIN,TOTAL 0.3 MG/DL (0.1-1.0)
[2019-11-28 14:56] LABS: CREATININE SERUM 1.42 MG/DL (0.60-1.30)
[2019-11-28 15:00] LABS: BACTERIA,URINE TRACE /HPF; SQUAMOUS EPITHELIAL CELL,UR 0-2 /HPF
[2019-11-28 15:14] LABS: BASOPHILS % (MANUAL) 1 %; LYMPHOCYTES % (MANUAL) 29 %; MONOCYTES % (MANUAL) 15 %; NEUTROPHILS % (MANUAL) 48 %
[2019-11-28 15:15] LABS: RBC MORPH NORMAL; REACTIVE LYMPHOCYTES 7 %
--- NOTE | 2019-11-28 15:51 | Diagnostic Imaging Report ---
PROCEDURE: CT right lower extremity without contrast. TECHNIQUE: Axially acquired CT was obtained through the right lower extremity without intravenous contrast. Coronal and sagittal reformations were also performed. Auto Exposure Controls were utilized during the CT exam to meet ALARA standards for radiation dose reduction. INDICATION: Fall. Right hip pain. COMPARISON: Pelvis and right hip radiographs from earlier today. FINDINGS: Mild degenerative changes in the right hip. No fracture or malalignment is identified. No suspicious osteoblastic or lytic lesion. Advanced atherosclerotic calcifications. No fluid collection within the [id number]. IMPRESSION: No acute CT finding in the right hip. Dictated by: Dictated on workstation # [id number]
[2019-11-28 17:10] VITALS: BP 124/78
== END 2019-11-28 17:44 | disposition home or self-care (01) ==
LOC: EDUNIT# 13:06 → ER 13:07
DX: S30.0XXA Contusion of lower back and pelvis, initial encounter (principal); E78.00 Pure hypercholesterolemia, unspecified; F41.9 Anxiety disorder, unspecified; E11.9 Type 2 diabetes mellitus without complications; I10 Essential (primary) hypertension; K21.9 Gastro-esophageal reflux disease without esophagitis; Z95.1 Presence of aortocoronary bypass graft; Z95.0 Presence of cardiac pacemaker; Z79.84 Long term (current) use of oral hypoglycemic drugs; Z79.82 Long term (current) use of aspirin; W19.XXXA Unspecified fall, initial encounter
CPT/HCPCS: 36415; 70450; 72131; 73700; 80053; 81000; 82962; 85007; 85027; 87088

== ENCOUNTER 2020-03-12 23:07 | Emergency (ER) | payer MEDICARE, MEDICAID ==
[~2020-03-12 23:07] MED LIST changes: +ASPI-1238 PO; -ASPI-983 PO; -MECL-172 PO; +MECL-173 PO; -PANT40TA3 PO; +PANT40TA52 PO; -RISP1TAB3 PO; +RISP1TAB93 PO
[2020-03-13 01:20] LABS: POTASSIUM 4.1 MMOL/L (3.6-5.0)
[2020-03-13 01:21] LABS: CALCIUM 9.1 MG/DL (8.5-10.1)
[2020-03-13 01:25] LABS: CREATININE SERUM 2.14 MG/DL (0.60-1.30)
[2020-03-13 01:40] LABS: BASOPHILS % (AUTO) 0 % (0-10); EOSINOPHILS % (AUTO) 0 % (0-10); HEMATOCRIT 36 % (40-54); HEMOGLOBIN 11.1 g/dL (13.3-17.7); LYMPHOCYTES % (AUTO) 7 % (12-44); MEAN CORPUSCULAR HEMOGLOBIN 27 pg (25-34); MEAN CORPUSCULAR HGB CONC 31 g/dL (32-36); MEAN CORPUSCULAR VOLUME 89 fL (80-99); MONOCYTES # (AUTO) 2.5 10^3/uL (0.0-1.0); MONOCYTES % (AUTO) 16 % (0-12); NEUTROPHILS # (AUTO) 11.8 10^3/uL (1.8-7.8); NEUTROPHILS % (AUTO) 76 % (42-75); PLATELET COUNT 218 10^3/uL (130-400); WHITE BLOOD COUNT 15.5 10^3/uL (4.3-11.0)
[2020-03-13] MEDS ORDERED: LACTATED RINGERS 1,000 ML IV SCH (01:45)
--- NOTE | 2020-03-13 01:50 | NUR ---
O2 SAT 99% ON 4L VIA NC. O2 DECREASED TO 2L NC AND O2 SAT CONTINUED TO STAY AT 99%.
--- NOTE | 2020-03-13 01:58 | ED General ---
General Chief Complaint: Altered Mental Status Stated Complaint: ALTERED MENTAL STATUS/UNRESPONSIVE Nursing Triage Note: TO ED VIA [facility] FROM [facility]. PER EMS STAFF STATED PT "HAD NO CHEST RISE OR FALL" O2 SAT 97%. EMS FOUND BLOOD SUGAR READING TO BE "TOO LOW" ON THEIR MACHINE AND INITIATED D10 TO THE EQUIVALENT OF 25G TO WHICH THE RE CHECK BLOOD SUGAR WAS IN THE 400s. BLOOD SUGAR 217 MG/DL ON ARRIVAL TO ER. PT ONLY RESPONSIVE TO LIGHT STIMULATION, WITH DEEP SNORE LIKE RESPIRATIONS. Nursing Sepsis Screen: No Definite Risk Source of Information: Patient Exam Limitations: No Limitations History of Present Illness Date Seen by Provider: Mar 12, 2020 Time Seen by Provider: 23:30 Initial Comments Patient is a 79-year-old male who presents by EMS from a local skilled nursing with a chief complaint per skilled nursing staff of poor respiratory effort. EMS reported that blood sugars were "too low to read" on their machine. He was given an amp of D50 with improved responsiveness. Patient responded to sternal rub. On my examination the patient responds to be rubbing his chest and awakens briefly. States that he is not in any pain. States that he has no complaints. Quickly falls back to sleep. Has sonorous respirations. Good respiratory effort. I cannot keep the patient awake for any type of conversation. I am unable to obtain any HPI from the patient secondary to his somnolent status. No review of systems obtainable from the patient due to his somnolent state. Timing/Duration: 1/2 Hour Severity: Mild Allergies and Home Medications Allergies Coded Allergies: No Known Drug Allergies (Unverified , 10/27/16) Home Medications Acetaminophen 325 Mg Tablet, 650 MG PO Q4H PRN for MILD PAIN/FEVER, (Reported) Aspirin 81 Mg Tablet.dr, 81 MG PO DAILY, (Reported) Bisacodyl 10 Mg Supp.rect, 10 MG RC DAILY PRN for CONSTIPATION-4TH LINE, (Reported) ONLY USE IF MILK OF MAGNESIA IS NOT EFFECTIVE Carvedilol 6.25 Mg Tablet, 6.25 MG PO BID, (Reported) HOLD FOR CANDACE LESS THEN 100/60 AND PULSE LESS THAN 60 Cefdinir 300 Mg Capsule, 300 MG PO BID Prescribed by: ISACC NARANJO on 03/26/19 0830 Cholecalciferol (Vitamin D3) 1,000 Unit Capsule, 1,000 UNIT PO DAILY, (Reported) Clopidogrel Bisulfate 75 Mg Tablet, 75 MG PO DAILY, (Reported) Dextrose 37.5 Gm Gel..gram., 1 PACKET PO EVERY 15 MINUTES PRN for HYPOGLYCEMIA, (Reported) AFTER 3 DOSES IF NO CHANGE IN BS OR CHANGE IN PUNEET GIVE GLUCOAGON AND NOTIFY PCP Docusate Sodium 100 Mg Capsule, 100 MG PO BID, (Reported) Donepezil HCl 5 Mg Tablet, 10 MG PO HS, (Reported) Glucagon,Human Recombinant 1 Mg/Kit Soln, 1 MG IJ UD PRN for HYPOGLYCEMIA, (Reported) USE FOR GLUCOSE <60 Hydroxyzine HCl 25 Mg Tablet, 25 MG PO HS, (Reported) Insulin Aspart 300 Units/3 Ml Solution, SQ EVENING, (Reported) 0-59 = 0 CALL PHYSICIAN 60-200 = 0 201-250 = 3 UNITS 251-300 = 5 UNITS 301- 350 = 7 UNITS 351-400 = 9 UNITS 401-999 = 9 UNITS CALL PHYSICAIN Insulin NPH Human Isophane 100 Unit/1 Ml Vial, 10 UNIT SQ DAILY, (Reported) NOTIFY PCP OF BS <60 OR >400 Ipratropium/Albuterol Sulfate 3 Ml Ampul.neb, 3 ML INH TID Prescribed by: ISACC NARANJO on 03/26/19 0832 Lisinopril 5 Mg Tablet, 5 MG PO DAILY, (Reported) HOLD FOR BP LESS THAN 100/60 AND PULSE LESS THAN 60 Magnesium Hydroxide 400 Mg/5 Ml Oral.susp, 30 ML PO DAILY PRN for CONSTIPATION- 7TH LINE, (Reported) Meclizine HCl 12.5 Mg Tablet, 25 MG PO TID, (Reported) TAKES 2 (12.5MG)TABS Memantine HCl 10 Mg Tablet, 10 MG PO BID, (Reported) Metformin HCl 1,000 Mg Tablet, 1,000 MG PO BID, (Reported) Ondansetron 8 Mg Tab.rapdis, 8 MG PO Q8H PRN for NAUSEA/VOMITING-1ST LINE, (Reported) Pantoprazole Sodium 40 Mg Tablet.dr, 40 MG PO DAILY, (Reported) Risperidone 1 Mg Tablet, 0.5 MG PO DAILY, (Reported) TAKE OF A 1MG TAB TO EQUAL 0.5MG DAILY Simvastatin 40 Mg Tablet, 40 MG PO HS, (Reported) Tramadol HCl 50 Mg Tablet, 50 MG PO BID, (Reported) Patient Home Medication List Home Medication List Reviewed: Yes Review of Systems Review of Systems Constitutional: see HPI Unable to obtain review of systems from this patient with altered mental status/history of dementia Past Mbvvtfa-Qumiaa-Dmdhck Hx Patient Social History Alcohol Use: Denies Use Number of Drinks Today: AA Alcohol Beverage of Choice: Beer Recreational Drug Use: No Type Used: Cigarettes 2nd Hand Smoke Exposure: No Recent Foreign Travel: No Contact w/Someone Who Travel: No Recent Infectious Disease Expo: No Recent Hopitalizations: Yes (pacemaker) Immunizations Up To Date Tetanus Booster (TDap): Unknown Date of Pneumonia Vaccine: Apr 02, 2017 Date of Influenza Vaccine: Jan 15, 2019 Seasonal Allergies Seasonal Allergies: No Past Medical History Surgeries: Yes Cardiac, CABG, Pacemaker Respiratory: No Cardiac: Yes (PACEMAKER) Coronary Artery Disease, High Cholesterol, Hypertension Neurological: Yes Dementia Genitourinary: No Gastrointestinal: Yes Gastroesophageal Reflux Musculoskeletal: No Endocrine: Yes Diabetes, Insulin dep HEENT: No Cancer: No Psychosocial: Yes (etoh abuse) Anxiety Integumentary: No Family Medical History No Pertinent Family Hx Physical Exam Vital Signs Vital Signs - First Documented Capillary Refill : Less Than 3 Seconds Height, Weight, BMI Height: 5'10.00" Weight: 190lbs. 0oz. 86.425418jb; 24.00 BMI Method:Stated General Appearance: No Apparent Distress, WD/WN Eyes: Bilateral Eye Normal Inspection, Bilateral Eye PERRL Respiratory: Lungs Clear, Normal Breath Sounds, No Accessory Muscle Use, No Respiratory Distress Cardiovascular: Regular Rate, Rhythm Gastrointestinal: Non Tender, Soft Extremity: Normal Capillary Refill, Non Tender Neurologic/Psychiatric: Depressed Affect, Other (Patient seems quite somnolent. He does answer yes and no questions in a whispered voice. He denies any complaints of pain) Skin: Normal Color, Warm/Dry Progress/Results/Core Measures Suspected Sepsis Recent Fever Within 48 Hours: No Infection Criteria Present: Suspected New Infection New/Unexplained Altered Menta: Yes Sepsis Screen: No Definite Risk SIRS Temperature: Pulse: 82 Respiratory Rate: 24 Laboratory Tests 03/12/20 23:32: White Blood Count 15.5H Blood Pressure / Mean: Laboratory Tests 03/12/20 23:32: Creatinine 2.14H, Platelet Count 218 03/13/20 04:15: Creatinine 1.90H Results/Orders Lab Results Laboratory Tests Test 03/12/20 23:19 03/12/20 23:32 03/13/20 04:15 03/13/20 05:20 Range/Units Glucometer 217 H 114 H 70-110 MG/DL White Blood Count 15.5 H 4.3-11.0 10^3/uL Red Blood Count 4.10 L 4.30-5.52 10^6/uL Hemoglobin 11.1 L 13.3-17.7 g/dL Hematocrit 36 L 40-54 % Mean Corpuscular Volume 89 80-99 fL Mean Corpuscular Hemoglobin 27 25-34 pg Mean Corpuscular Hemoglobin Concent 31 L 32-36 g/dL Red Cell Distribution Width 14.6 H 10.0-14.5 % Platelet Count 218 130-400 10^3/uL Mean Platelet Volume 13.0 H 9.0-12.2 fL Immature Granulocyte % (Auto) 1 % Neutrophils (%) (Auto) 76 H 42-75 % Lymphocytes (%) (Auto) 7 L 12-44 % Monocytes (%) (Auto) 16 H 0-12 % Eosinophils (%) (Auto) 0 0-10 % Basophils (%) (Auto) 0 0-10 % Neutrophils # (Auto) 11.8 H 1.8-7.8 10^3/uL Lymphocytes # (Auto) 1.0 1.0-4.0 10^3/uL Monocytes # (Auto) 2.5 H 0.0-1.0 10^3/uL Eosinophils # (Auto) 0.0 0.0-0.3 10^3/uL Basophils # (Auto) 0.0 0.0-0.1 10^3/uL Immature Granulocyte # (Auto) 0.1 0.0-0.1 10^3/uL Neutrophils % (Manual) 76 % Lymphocytes % (Manual) 5 % Monocytes % (Manual) 16 % Myelocytes % 1 % Reactive Lymphocytes 2 % Blast Cells 3 % Microcytosis SLIGHT Sodium Level 149 H 153 H 135-145 MMOL/L Potassium Level 4.1 4.6 3.6-5.0 MMOL/L Chloride Level 114 H 115 H 98-107 MMOL/L Carbon Dioxide Level 23 25 21-32 MMOL/L Anion Gap 12 13 5-14 MMOL/L Blood Urea Nitrogen 82 H 75 H 7-18 MG/DL Creatinine 2.14 H 1.90 H 0.60-1.30 MG/DL Estimat Glomerular Filtration Rate 30 35 BUN/Creatinine Ratio 38 39 Glucose Level 208 H 46 *L 70-105 MG/DL Calcium Level 9.1 9.1 8.5-10.1 MG/DL My Orders Orders - MARKO DALEY MD Chest 1 View, Ap/Pa Only (03/12/20 23:33) Cbc With Automated Diff (03/13/20 00:20) Basic Metabolic Panel (03/13/20 00:20) Lactated Ringers (Lr 1000 Ml Iv Solution (03/13/20 01:45) Manual Differential (03/12/20 23:32) O2 (03/13/20 01:54) Lactated Ringers (Lr 1000 Ml Iv Solution (03/13/20 02:09) Basic Metabolic Panel (03/13/20 03:41) D50w (Emergency) Syringe (Dextrose 50% 5 (03/13/20 04:45) D50w (Emergency) Syringe (Dextrose 50% 5 (03/13/20 04:41) Accucheck Stat ONCE (03/13/20 04:59) Medications Given in ED Current Medications Medications Dose Ordered Sig/Serina Route Start Time Stop Time Status Last Admin Dose Admin Dextrose 50 ml ONCE ONCE IV 03/13/20 04:45 03/13/20 04:54 DC 03/13/20 04:46 50 ML Vital Signs/I&O 03/12/20 03/12/20 23:07 23:07 Pulse 82 Resp 24 B/P (MAP) O2 Delivery Room Air Nasal Cannula O2 Flow Rate 4.00 4.00 Capillary Refill : Less Than 3 Seconds Progress Note : Time: 02:04 Progress Note Basic laboratory studies obtained from the patient. CBC, Chem-7, chest x-ray. Chest x-ray is reviewed and is unremarkable. Patient has a little bit of a leukocytosis with a white count of 15,000. Chemistry shows an elevated BUN at 82 elevated creatinine at 2. Patient is given 1 L of lactated Ringer's for dehydration. Blood sugar remains adequate at 200. Patient is resting comfortably. Per review of the medical record the patient has significant dementia and is normally only alert to person. I have no clinical or objective findings to warrant further studies from the emergency department at this time. We will hydrate the patient with a total of 2 L of lactated Ringer's and recheck a chemistry after these are done 0446 After 2 L of LR patient's chemistry reevaluated. Creatinine is come down to 1.9 and his BUN is down slightly as well. Sodium went up to 153. Sugar is 46. Patient is given an amp of D50. Vital signs remained stable. The patient is alert. No complaints are verbalized. But again the patient has severe dementia and is typically only oriented to self per review of the medical record. I see no clinical or objective findings to warrant further studies from the emergency department. The patient does not really meet admission criteria at this point. He does have a little acute kidney injury however I do not believe this requires admission. Patient's blood sugar will be rechecked in 30 minutes but anticipate discharge back to the skilled nursing. Departure Impression Primary Impression: Hypoglycemia Additional Impressions: Chronic kidney disease Qualified Codes: N18.9 - Chronic kidney disease, unspecified Dementia Qualified Codes: F03.90 - Unspecified dementia without behavioral disturbance Disposition: 01 HOME, SELF-CARE Condition: Stable Departure-Patient Inst. Decision time for Depature: 05:50 Referrals: GISELL RATLIFF DO (PCP/Family) Primary Care Physician Patient Instructions: Low Blood Sugar, Adult (DC) Add. Discharge Instructions: Resume previous skilled nursing care plan return to the emergency department for any new, emergent, worsening symptoms MARKO DALEY MD Mar 13, 2020 01:58
[2020-03-13] MEDS ORDERED: LACTATED RINGERS 1,000 ML IV STA (02:09)
[2020-03-13 02:26] LABS: BLAST CELLS 3 %; LYMPHOCYTES % (MANUAL) 5 %; MICROCYTOSIS SLIGHT; MONOCYTES % (MANUAL) 16 %; MYELOCYTES % 1 %; NEUTROPHILS % (MANUAL) 76 %; REACTIVE LYMPHOCYTES 2 %
[2020-03-13 04:30] LABS: POTASSIUM 4.6 MMOL/L (3.6-5.0)
[2020-03-13 04:31] LABS: CALCIUM 9.1 MG/DL (8.5-10.1)
[2020-03-13 04:36] LABS: CREATININE SERUM 1.9 MG/DL (0.60-1.30)
[2020-03-13] MEDS ORDERED: DEXTROSE 50% 50 ML (IMS) SYR ONE (04:41)
[2020-03-13] MEDS ORDERED: DEXTROSE 50% 50 ML (IMS) SYR IV ONE (04:45)
--- NOTE | 2020-03-13 06:02 | NUR ---
[facility] called et. informed nurse (abdullahi) pt was ready to come back to [facility]. she requested ems transport pt. informed her she would need to contact ems shift supervisor melting to arrange ems transportation.
--- NOTE | 2020-03-13 07:29 | Diagnostic Imaging Report ---
INDICATION: Shortness of breath. COMPARISON STUDY: Chest from 03/25/2019. FINDINGS: Frontal view of the chest demonstrates the lungs to be clear. Heart size and vascularity are normal. There are no pleural effusions. Sternotomy changes and cardiac pacer are again identified. IMPRESSION: There are no acute findings. Dictated by: Dictated on workstation # [id number]
[2020-03-13 07:45] VITALS: BP 122/78
== END 2020-03-13 07:55 | disposition home or self-care (01) ==
LOC: EDUNIT# 23:07 → ER 23:09
DX: E11.649 Type 2 diabetes mellitus with hypoglycemia without coma (principal); E11.22 Type 2 diabetes mellitus with diabetic chronic kidney disease; I12.9 Hypertensive chronic kidney disease with stage 1 through stage 4 chronic kidney disease, or unspecified chronic kidney disease; F03.90 Unspecified dementia, unspecified severity, without behavioral disturbance, psychotic disturbance, mood disturbance, and anxiety; F41.9 Anxiety disorder, unspecified; E78.00 Pure hypercholesterolemia, unspecified; F32.9 Major depressive disorder, single episode, unspecified; K21.9 Gastro-esophageal reflux disease without esophagitis; Z95.1 Presence of aortocoronary bypass graft; Z95.0 Presence of cardiac pacemaker; Z79.4 Long term (current) use of insulin; Z79.82 Long term (current) use of aspirin
CPT/HCPCS: 36415; 71045; 80048; 82962; 85007; 85027